=== PATIENT | female | born 1935 | race Caucasian/White ===

== ENCOUNTER 2019-01-18 13:08 | Emergency (ER) | payer OTHER ==
[~2019-01-18] VITALS: Ht 167.6 cm; Wt 40.8 kg
[2019-01-18 14:01] LABS: ANION GAP 10 mmol/L (7-16); BUN 33 mg/dL (7-18); CALCIUM 10.2 mg/dL (8.5-10.1); CHLORIDE 98 mmol/L (98-107); CO2 25 mmol/L (21-32); CREATININE 1.3 mg/dL (0.6-1.0); GLUCOSE 109 mg/dL (74-106); POTASSIUM 4.3 mmol/L (3.5-5.1); SODIUM 133 mmol/L (136-145)
[2019-01-18 14:11] LABS: ALBUMIN 3.4 g/dL (3.4-5.0); SGOT 27 U/L (15-37); SGPT 27 U/L (30-65); TOTAL PROTEIN 7.6 g/dL (6.4-8.2); TROPONIN-I <0.06 ng/mL (<0.06)
[2019-01-18 14:37] LABS: ABSOLUTE NEUTROPHILS 10.9 thou/uL (1.4-8.2); BASOPHILS 0.5 % (0.0-2.0); EOSINOPHILS 0.1 % (0.0-3.0); HEMATOCRIT 41.9 % (37.0-47.0); HEMOGLOBIN 14.3 gm/dL (12.0-15.0); LYMPHOCYTES 7.9 % (24.0-44.0); MCH 34.1 pg (26.0-34.0); MCHC 34.1 g/dL (28.0-37.0); PLATELET COUNT 231 thou/uL (150-400); POLYS 81.5 % (36.0-66.0); RBC 4.19 mil/uL (4.20-5.00); RDW 13.1 % (10.5-14.5); WBC 13.3 thou/uL (4.0-11.0)
[2019-01-18 16:04] LABS: URINE BILIRUBIN NEGATIVE (Negative); URINE BLOOD NEGATIVE (Negative); URINE CLARITY CLOUDY; URINE COLOR YELLOW; URINE GLUCOSE-RANDOM* NEGATIVE (Negative); URINE KETONES NEGATIVE (Negative); URINE LEUKOCYTES 1+ (Negative); URINE NITRITE NEGATIVE (Negative); URINE PROTEIN (DIPSTICK) TRACE (Negative); URINE SPECIFIC GRAVITY >= 1.030 (1.005-1.035); URINE UROBILINOGEN 0.2 E.U./dl (0.2-1.0)
[2019-01-18 16:11] LABS: CASTS None Seen /LPF (None Seen); SQUAMOUS >10 Many /LPF (0-3); URINE RBC None Seen /HPF (0-2); URINE WBC 6-15 Few /HPF (0-5)
[2019-01-18 16:12] LABS: BACTERIA >30 Many /HPF (None Seen); CRYSTALS None Seen /LPF (None Seen)
[2019-01-18] MEDS ORDERED: KEFLEX500 M1 PO (16:36)
[2019-01-18] MEDS ORDERED: ZOFRAN ODT4 MG PO (16:36)
[2019-01-18 17:00] VITALS: BP 122/77
== END 2019-01-18 17:00 | disposition home or self-care (01) ==
LOC: ER 13:08
PROVIDERS: Emergency Medicine
DX: N39.0 Urinary tract infection, site not specified (principal); J06.9 Acute upper respiratory infection, unspecified; R42 Dizziness and giddiness; M06.9 Rheumatoid arthritis, unspecified; Z88.5 Allergy status to narcotic agent; Z91.013 Allergy to seafood

== ENCOUNTER 2019-07-06 23:28 | Inpatient (IN) | payer OTHER ==
[~2019-07-06] VITALS: Ht 167.6 cm; Wt 40.1 kg
[~2019-07-06 23:28] MED LIST: KEFLEX500 M1 PO; ZOFRAN ODT4 MG PO
[2019-07-06 23:29] VITALS: BP 162/90
[2019-07-07] VITALS (10 sets, daily range): BP systolic 121–166; BP diastolic 54–94
[2019-07-07] MEDS ORDERED: LEFLUNOMIDE 1010 MG PO
[2019-07-07] MEDS ORDERED: COZAAR 25 MG TA25 M1 PO (00:01)
[2019-07-07] MEDS ORDERED: SERTRALINE HCL100 MG PO (00:01)
[2019-07-07] MEDS ORDERED: FAMOTIDINE 20 M20 MG PO (00:01)
[2019-07-07 00:20] LABS: BASOPHILS 0.8 % (0.0-2.0); EOSINOPHILS 1.4 % (0.0-3.0); HEMATOCRIT 32.3 % (37.0-47.0); HEMOGLOBIN 10.5 gm/dL (12.0-15.0); LYMPHOCYTES 11.6 % (24.0-44.0); MCH 32.4 pg (26.0-34.0); MCHC 32.7 g/dL (28.0-37.0); MCV 99.2 fL (80.0-100.0); MONOCYTES 9.6 % (1.0-8.0); PLATELET COUNT 321 thou/uL (150-400); POLYS 76.6 % (36.0-66.0); RBC 3.25 mil/uL (4.20-5.00); WBC 10.5 thou/uL (4.0-11.0)
[2019-07-07 00:22] LABS: ANION GAP 11 mmol/L (7-16); BUN 22 mg/dL (7-18); CALCIUM 7.8 mg/dL (8.5-10.1); CHLORIDE 105 mmol/L (98-107); CO2 20 mmol/L (21-32); CREATININE 0.8 mg/dL (0.6-1.0); GLUCOSE 109 mg/dL (74-106); POTASSIUM 3.3 mmol/L (3.5-5.1); SODIUM 136 mmol/L (136-145)
[2019-07-07 00:31] LABS: TROPONIN-I <0.06 ng/mL (<0.06)
--- NOTE | 2019-07-07 04:09 | NUR ---
PT WAS ADMITTED TO THE UNIT AT APPROX 0230 FROM THE ER IN A STABLE CONDITION.PT AXOX3.PT FROM [facility] WITH L HIP FX.ADMISSION HX,EDUCATION AND ASSESSMENT COMPLETED WITH THE HELP OF THE HOUSE SUP.PT HAS HER R GREAT TOE AMPUTATED June,SUTURES STILL IN PLACE.PT DENIED PAIN ON ADMISSION.PT NPO AT THIS TIME FOR POSSIBLE SURGERY TODAY.IVF INFUSING ORDERED .PT ABLE TO MAKE HER NEEDS KNOWN.FALL PRECAUTIIONS IN PLACE,CALL LIGHT WITHIN REACH.
--- NOTE | 2019-07-07 09:39 | NUR ---
WOUND CONSULT; INITIAL ASSESSMENT OF THE RIGHT GREAT TOE AMPUTATION SITE. THE INSCISION IS STABLE WITH NO S/S OF INFECTION.(SEE PICTURE) THE AMPUTATION WAS REPORTED 7 DAY AGO. THERE ALSO IN ERYTHEMA AND BRUISING CONSISTANT WITH A DTI. RECOMMENDATION; PAINT BOTH SITES WITH BETADINE DAILY. (NOTIFY WOUND CARE OF ANY CHANGES) RN PRESENT
[2019-07-07 11:21] LABS: TSH 7.986 uIU/mL (0.358-3.740)
--- NOTE | 2019-07-07 14:12 | NUR ---
PT ADMITTED RELATED TO LEFT HIP FRACTURE. CM REVIEWED CHART AND SPOKE WITH CARE TEAM. CM MET WITH PT AT BEDSIDE THIS DAY. PT IS A&O X4 BUT INDICATED SHE HAS DIFFICULTY WITH SHORT TERM MEMORY. PT STATED THAT SHE RESIDES AT [facility]. SHE STATED THAT SHE USED A FWW TO ASSIST [facility] MOBILITY EDUCATIONAL PROGRAM DIRECTOR. SHE STATED SHE HAD BEEN GETTING THERAPY EDUCATIONAL PROGRAM DIRECTOR AND THINKS IT WAS THROUGH [facility]. PT ASKED THAT CM SPEAK WITH HER DTR IN LAW JULIETTE. CM CALLED AND JULIETTE INDICATED THAT SHE OR HER HAD BEEN VISITING PT DAILY OR EVERY OTHER DAY EDUCATIONAL PROGRAM DIRECTOR. SHE STATED THAT THEY WERE CONTEMPLATING A MOVE TO AL LEVEL OF CARE. THEY INDICATED PT HAD PAID INTO [facility] BENEFIT AND WOULD LIKE TO PT TO GO TO [facility] IF POST ACUTE CARE STAY IS NEEDED. CM TO FAX REFERRAL. CM TO FOLLOW INDICATED WITH DC PLANNING.
--- NOTE | 2019-07-07 16:33 | NUR ---
VSS-AFEBRILE. C/O SIGNIFICANT LEFT HIP PAIN, PARTIAL RELIEF NOTED WITH IV PAIN MEDICATION. TO OR THIS AFTERNOON, SON NOTIFIED HE IS THE DPOA. REPORT GIVEN TO PREOP RN.
[2019-07-08] VITALS (7 sets, daily range): BP systolic 111–129; BP diastolic 55–83
[2019-07-08 05:31] LABS: MCH 33.7 pg (26.0-34.0); MCHC 33.6 g/dL (28.0-37.0); MCV 100.4 fL (80.0-100.0); RBC 2.39 mil/uL (4.20-5.00); RDW 13.2 % (10.5-14.5); WBC 9.6 thou/uL (4.0-11.0)
--- NOTE | 2019-07-08 05:37 | NUR ---
Assumed pt care @1915. pt alert and oriented but has short term memory which she is well aware off. pt had a restful night. pt denied pain last night but requesting some pain meds early this morning. pain controlled with pain med. vázquez inplaced and patent. produced 250ml overnight. bladderscan showed 0ml. pt stated that she does't feel any discomfort. . v/s have been stable all night. no s/s of distress. dressing to left hip c/d/i. right toe stitches inplaced. will cont to monitor
[2019-07-08 05:40] LABS: CALCIUM 8.7 mg/dL (8.5-10.1); CREATININE 0.8 mg/dL (0.6-1.0); POTASSIUM 4.6 mmol/L (3.5-5.1)
[2019-07-08 05:51] LABS: HEMOGLOBIN 8.1 gm/dL (12.0-15.0)
--- NOTE | 2019-07-08 06:24 | O ---
[facility] [place] [address] OPERATIVE REPORT Name: EKTA GREEN Room #: 435-P ADM IN M.R.#: [id number] Admission: 07/07/19 Attend Phys: Keny Norris Discharge: Date of : 35 Report #: [id number] THIS REPORT FOR: cc: Scott Thompson MD, Rene P. MD McCabe, Michael P. MD ~ CC: Keny Thompson PREOPERATIVE DIAGNOSIS: Comminuted intertrochanteric hip fracture, left hip. POSTOPERATIVE DIAGNOSIS: Comminuted intertrochanteric hip fracture, left hip. PROCEDURE: Intramedullary nail treatment of left intertrochanteric hip fracture. COMPLICATIONS: None. DRAINS: None. SPECIMENS: None. ANESTHESIA: General. ESTIMATED BLOOD LOSS: 75 mL. FINDINGS: [place] [employer] size 13 mm x 125 degree InterTan with 90 x 95 cephalomedullary screws and 30 mm distal interlock screw. HISTORY AND INDICATIONS: The patient is an elderly female who fell at her living facility last night and sustained an intertrochanteric hip fracture. She was indicated for surgical treatment. Risks, benefits, alternatives, and indication of surgery discussed with her and her son who gave full informed consent. They wished to move forward. Risks include, malunion, nonunion, need for further surgery, pain, bleeding, infection, complications related to anesthesia as well up to and including mortality. PROCEDURE IN DETAIL: After the left lower extremity was correctly identified as the operative extremity, the patient was taken to the operating room where general anesthesia was induced without complication. She was padded appropriately. Prophylactic antibiotics were administered at appropriate time. She was placed in traction boots and then time-out procedure was performed. The fracture alignment was evaluated under fluoroscopy and reduction maneuver was performed with abduction, external rotation, internal rotation and traction and then the traction was let down and good alignment was achieved. Left leg was prepped and draped in standard sterile fashion. [facility] [address] [place] [address] OPERATIVE REPORT Name: EKTA GREEN Room #: 435-P [facility] IN M.R.#: [id number] Admission: 07/07/19 Attend Phys: Keny Norris Discharge: Date of : 35 Report #: [id number] Under multiple planes of fluoroscopy, a guidepin was placed in the greater trochanter and access was obtained to the intramedullary space with the guide pin followed by the channel reamer. A ball tip guidewire was then advanced down the femur and we passed a 13 mm reamer indicating a size 13 nail would fit well and then placed this into the appropriate position and seated on x-ray. The cephalomedullary guide pin was then placed into the femoral head with care taken to ensure an appropriate tip apex distance on multiple planes. The fracture appeared well reduced. The InterTan interlocking screws were placed in the typical fashion with good compression achieved across the fracture and then assessed the reduction and was happy with the appearance and then placed the distal locking screw through the femoral nail outrigger and this obtained good purchase. Final x-rays were taken and confirming appropriate positioning and a satisfactory appearance of the fracture reduction and hardware. Wounds were copiously irrigated. The deep layer was closed with 0 Vicryl. The skin was closed with 2-0 Vicryl followed by skin bridgett. Sterile dressing was applied. The patient was awakened from anesthesia and taken to recovery room in stable condition. No complications. All counts were reported as correct. <ELECTRONICALLY SIGNED> By: Deep Ferguson MD 07/08/19 0624 [id number] Deep Ferguson MD /nt
[2019-07-08 06:37] LABS: MAGNESIUM 1.9 mg/dL (1.8-2.4)
--- NOTE | 2019-07-08 07:45 | EKG ---
[facility] [place] [address] ELECTROCARDIOGRAM REPORT Name: EKTA GREEN Room #: 435-P ADM IN M.R.#: [id number] Admission: 07/07/19 Attend Phys: Keny Norris Discharge: Date of : 35 Report #: [id number] THIS REPORT FOR: cc: Scott Thompson MD, Rene P. MD Lundgren,Jonathan Stewart MD [facility] ~ THIS REPORT FOR: //name// [facility] ED Test Date: 2019-07-07 Test Time: 01:10:18 Pat Name: EKTA GREEN Department: Room: [facility] Gender: F Pharmacy Benefits Coordinator: NO : 1935 Requested By: Duy Pierce Order Number: [id number] MD: Jonathan Baca Measurements Intervals [place] Rate: 79 P: 78 MT: 153 QRS: 64 QRSD: 90 T: 71 QT: 395 QTc: 453 Interpretive Statements Sinus rhythm Atrial premature complex Poor R wave progression No previous ECG available for comparison Electronically Signed On 07-08-2019 7:44:24 CDT by Jonathan Baca [email or web address] <ELECTRONICALLY SIGNED> By: Jonathan Baca MD, FAC 07/08/19 0744 0110 0110 Jonathan Baca MD, [facility] /EPI
--- NOTE | 2019-07-08 10:46 | NUR ---
FAXED TODAY'S PT/OT NOTES SPOKE WITH SHAHEED IN ADM SHE RECEIVED NOTES.
--- NOTE | 2019-07-08 11:52 | NUR ---
ASSUMED CARE OF THE PT AT 0700. PT IS VERY FORGET AND CONTINUES TO REPEAT THINGS SHE HAS ALREADY BEEN GIVEN OR BEEN TOLD. PT IS UP WITH ASSIST TO BSC WITH GAIT BELT AND WALKER. R UPPER ARM IV DRY AND INTACT. PT HAD SMALL BM WITH SMALL AMT OF MUCOUS. CATHETER TO COME OUT TODAY AFTER PT HAS MORE OUTPUT, GIVEN ORAL FLUIDS. WOUNDS CLEANED WITH NS AND BETADINE, AIR DRIED, R FOOT IN BOOT. FALL PRECAUTIONS IN PLACE. BED/ CHAIR ALARMS ON AND CALL LIGHT IS WITHIN REACH. WILL CONTINUE TO MONITOR THE PT.
--- NOTE | 2019-07-08 13:39 | NUR ---
[facility] INDICATED THAT THEY ARE ABLE TO ACCEPT PT FOR SHORT TERM POST ACUTE CARE STAY ONCE MEDICALLY STABLE. CM CALLED AND NOTIFIED PT'S FAMILY. THEY ARE AWARE AND AGREEABLE. CM TO FOLLOW INDICATED WITH DC PLANNING.
--- NOTE | 2019-07-08 19:25 | NUR ---
PT IN BED WAS ASSITTED XS 2 TO BSC. HAD SMALL BM. PT CUSSING AT STAFF AND WAVING ARMS AROUND STATES STAFF DOES NOT KNOW WHAT TO DO, PT HAS SHORT TERM MEMORY LOSS. PT STATES IS SORRY FOR WHAT SHE SAYS. IV FLUIDS INFUSING ORDERED. PRIMING MIXTURE CARRIER GOT PT UP TO BSC.
[2019-07-09 03:50] VITALS: BP 106/73
--- NOTE | 2019-07-09 05:48 | NUR ---
Pain partially relieved with current regimen. no other concerns overnight. vázquez in place and patent. dressing c/d/i. v/s stabl;e. no s/s of distress. will cont to monitor
[2019-07-09 05:54] LABS: HEMATOCRIT 20.2 % (37.0-47.0); HEMOGLOBIN 6.9 gm/dL (12.0-15.0); MCHC 34.1 g/dL (28.0-37.0); RDW 12.7 % (10.5-14.5); WBC 7.6 thou/uL (4.0-11.0)
[2019-07-09 05:57] LABS: MCV 99.5 fL (80.0-100.0); RBC 2.03 mil/uL (4.20-5.00)
[2019-07-09 07:10] VITALS: BP 136/74
--- NOTE | 2019-07-09 09:47 | NUR ---
WOUND CARE F/U; THE PATIENT OVERALL IS IMPROVING. THE RIGHT GREAT TOE AMPUTATION SITE IS HEALTHY AND NO S/S OF INFECTION OR DEHISCENCE AND IS WELL APPROXIMATED. THE SUTURES ARE DUE TO COME OUT ON THE WE WILL CONFIRM WITH THE PATIENTS DAUGHTER. THE RIGHT DORUSUM FOOT IS IMPROVING AND IS STABLE AND INTACT WITH LESS ERYTHEMA. CONTINUE POC DISCUSSED WITH MARY
--- NOTE | 2019-07-09 12:47 | NUR ---
IF PT SHOULD DISCHARGE OVER WEEKEND PLEASE FAX DC ORDERS/SUMMARY TO [phone] AND CALL [phone] TO SET UP TRANSPORTATION.
--- NOTE | 2019-07-09 12:58 | NUR ---
CARE TEAM INDICATED THAT PT WOULD LIKELY BE MEDICALLY STABLE TO DISCHARGE TO [facility] FOR SKILLED POST ACUTE CARE STAY THIS WEEKEND. CHART COPY ORDRED. WHEN PT IS MEDICALLY STABLE TO DISCHARGE CALL AND ASK FOR WEEKEND ADMISSIONS STAFF PERSON TO ARRANGE TRANSPORT. FAX ORDERS TO . CALL REPORT TO . NOTIFY FAMILY OF DISCHARGE DETAILS.
--- NOTE | 2019-07-09 14:44 | NUR ---
ASSUMED CARE OF THE PT AT 0700. PT IS A FALL RISK AND FALL PRECAUTIONS ARE IN PLACE. PTS R UPPER ARM INFILTRATED AND IV WAS REMOVED, NO SWEILLING. KAYE REMOVED. PTS HGB IS 6.9, DOCTOR NOTIFIED. WOUNDS CLEANED WITH NS AND BETADINE, AIR DRIED. PT IS ON 2.0L O2 NC. SCD'S AND ICE PACKS IN PLACE. PT IS TO RECIEVE A BLOOD TRANSFUSION PER DOCTOR, AWAITING ORDERS. BED IN LOWEST POSITION AND CALL LIGHT IS WITHIN REACH. WILL CONTINUE TO MONITOR THE PT.
[2019-07-09 17:06] VITALS: BP 146/67
[2019-07-09 18:39] VITALS: BP 127/77; BP 153/88
[2019-07-09 19:24] VITALS: BP 146/81
[2019-07-09 22:18] VITALS: BP 153/88
[2019-07-10 04:14] VITALS: BP 143/74
--- NOTE | 2019-07-10 04:24 | NUR ---
ASSESSMENT COMPLETED.ONE UNIT OF BLOOD TRANSFUSED /COMPLTED THIS SHIFT. PT IS ALERT AND ORIENTED. GETS ANXIOUS AT TIMES.LEFT HIP DRSG IS C/D/I. AFEBRILE. VOIDS PER BSC.SCDS IN PLACE. PAIN MANAGED BY HYDROCODONE THIS SHIFT. HAS 02/2L/NC, KEEPS TAKING IT OFF.SWALLOWING OKAY. DENIES COUGH. NO BM YET-AWAITING STOOL FOR OCCULT.FALL PREC IN PLACE.
[2019-07-10 05:56] LABS: HEMATOCRIT 25.4 % (37.0-47.0); HEMOGLOBIN 8.8 gm/dL (12.0-15.0); MCH 33.6 pg (26.0-34.0); MCHC 34.6 g/dL (28.0-37.0); MCV 97.3 fL (80.0-100.0); RBC 2.61 mil/uL (4.20-5.00); RDW 13.7 % (10.5-14.5)
[2019-07-10 07:36] VITALS: BP 150/81
[2019-07-10 15:20] VITALS: BP 134/102
--- NOTE | 2019-07-10 18:14 | NUR ---
ASSUMED PATIENT CARE AT 1000 WHEN PATIENT TRANSFERRED FROM , REPORT FROM [facility]. PATIENT HAS BEEN SLEEPING MOST OF THE DAY. WORKED WITH PT/OT. [place] WITH [place] [facility] [place] PATIENT HAS NOT BEEN EATING OR DRINKING MUCH OF ANYTHING. REFUSES TO EAT AND SLEEPS TRHOUGH THE MEAL. SCD'S IN PLACE. POSSIBLE D/C TOMORROW. PATIENT C/O SOME PAIN, PRN PAIN MEDS GIVEN. WOUND CARE COMPLETE, C/D/I FOR BOTH THE HIP INCISION AND THE TOE. PATIENT REFUSED TO SIT IN THE CHAIR BUT WAS OKAY WITH POSITION CHANGES. FALL PRECAUTIONS IN PLACE AND CALL LIGHT WITHIN REACH.
[2019-07-10 19:09] VITALS: BP 153/87
--- NOTE | 2019-07-10 19:16 | NUR ---
I AGREE WITH NURSING ASSESSMENT AND NURSING NOTE DONE BY GAMALIEL/JULIAN.
[2019-07-10 19:35] VITALS: BP 151/87
[2019-07-11 04:10] VITALS: BP 173/99
[2019-07-11 05:22] VITALS: BP 109/67
--- NOTE | 2019-07-11 07:18 | NUR ---
PATIENT ALERT AND ORIENTED X2-3. 2LNC DURING THE NIGHT. IV PATENT FOR FLUSH. BLOOD PRESSURE ELEVATED AND TREATED WITH PRN HYDRALAZINE 173/99 DOWN TO 109/67. PATIENT INCONTINENT OF URINE. NO BM DURING THE NIGHT. RESTING QUIETLY. PLEASANT AND COOPERATIVE.
[2019-07-11 09:26] VITALS: BP 128/78
--- NOTE | 2019-07-11 17:17 | NUR ---
ASSUMED CARE OF PATIENT AT 0715, PATIENT ALERT WITH CONFUSION. PATIENT C/O PAIN WITH LEFT HIP AREA, DR WU NOTIFIED OF PAIN LEVEL, NEW ORDER FOR HYDROCODONE 5/325MG SCHEDULED Q4HR WHILE AWAKE. PATIENT GIVEN SCHEDULED HYDROCODONE AT 1300, VERY LITTLE RELIEF, HYDROCODONE 2 TABS GIVEN, PATIENT WENT TO SLEEP. LEFT UPPER ARM IV IN PLACE. PATIENT C/O NAUSEA, ZOFRAN 4MG IV GIVEN. PATIENT UP TO THE CHAIR FOR LUNCH, C/O PAIN PUT BACK TO BED. LEFT HIP DRESSING C/D/I, CHANGED YESTERDAY. WILL CONTINUE TO MONITOR.
[2019-07-11 17:28] VITALS: BP 145/69
[2019-07-12 04:13] VITALS: BP 124/75
--- NOTE | 2019-07-12 05:27 | NUR ---
PATIENT ALERT AND ORIENTED X2. 02NC 2L WITH GOOD SATURATION. REQUIRES TWO ASSIST. PLEASANT AND COOPERATIVE WITH CARE. MANAGED PAIN WITH SCHEDULED PAIN MEDICATION. RESTING QUIETLY. INCONTINENT B/B.
[2019-07-12 05:45] LABS: CALCIUM 8.6 mg/dL (8.5-10.1); CREATININE 0.8 mg/dL (0.6-1.0); POTASSIUM 3.6 mmol/L (3.5-5.1)
[2019-07-12 05:50] LABS: HEMATOCRIT 27.3 % (37.0-47.0); HEMOGLOBIN 9.3 gm/dL (12.0-15.0); MCH 33.3 pg (26.0-34.0); MCHC 34.1 g/dL (28.0-37.0); MCV 97.7 fL (80.0-100.0); RBC 2.79 mil/uL (4.20-5.00); RDW 13.6 % (10.5-14.5); WBC 8.1 thou/uL (4.0-11.0)
[2019-07-12 09:30] VITALS: BP 101/60
[2019-07-12] MEDS ORDERED: XARELTO10 MG PO (12:23)
[2019-07-12] MEDS ORDERED: MIRALAX17 GM PO (12:23)
[2019-07-12] MEDS ORDERED: COLACE100 MG PO (12:23)
[2019-07-12] MEDS ORDERED: NORCO 5-325 TA1 EAC1 PO (12:24)
[2019-07-12] MEDS ORDERED: TYLENOL 8 HOUR650 MG PO (12:25)
--- NOTE | 2019-07-12 13:19 | NUR ---
PT DISCHARGING TODAY TO [facility] FAXED DC ORDERS/SUMMARY TO FACILITY SPOKE WITH SHAHEED IN ADM SHE RECEIVED ORDERS AND ARRANGED TRANSPORT BY [facility] FOR 1600 TODAY. NOTIFIED PT'S DTR IN LAW (JULIETTE) OF DC AND TIME OF TRANSPORT. UNIT NOTIFIED AND CHART COPY PER US. RN TO CALL REPORT TO [phone].
--- NOTE | 2019-07-12 15:10 | NUR ---
CARE TEAM INDICATED THAT PT IS MEDCIALLY STABLE TO DISCHARGE TO [facility] THIS DAY. CHART COPY ORDERED. ORDERS FAXED. [facility]SP[facility] ARRANGED FOR 1600. PT'S DTR IN LAW AND SON ARE AWARE AND AGREEABLE. REPORT TO BE CALLED TO . NO OTHER CM INTERVENTION INDICATED CASE CLOSED.
--- NOTE | 2019-07-12 15:23 | NUR ---
WOUND CARE F/U; THIS PATIENT WAS SEEN PREVIOUSLY RE; A LEFT HIP FRACTURE. THE RIGHT DORSUM WAS SUGGESTIVE OF A DTI BUT TODAY IT IS MUCH IMPROVED AND LIKELY JUST A BRUISE. THE RN IS LOOKING INTO SUTURE REMOVAL IN THE VIA INFO FROM THE PATIENTS DPOA. RECOMMENDATIONS; NO CHANGES WOUND CARE WILL SIGN OFF AT THIS TIME. DISCUSSED WITH RN
--- NOTE | 2019-07-12 17:14 | NUR ---
ASSUMED PATIENT CARE AT 0700. PATIENT IS AOX4 TODAY AND VERY PLEASANT. C/O PAIN AND SCHEDULED PAIN MEDS GIVEN AND HELPING. PATIENT ABLE TO EAT BETTER AND DRINK HER SUPPLEMENT. PATIENT ALLOWED OT/PT TO WORK WITH HER A LITTLE BUT DIDN'T WANT TO SIT IN THE CHAIR. PATIENT D/C AT 1600 TO [facility], REPORT CALLED TO DAKOTAH.
== END 2019-07-12 17:30 | DRG 480 ==
LOC: ER 23:28 → EROBS 07-07 01:13 → 4S 07-07 01:13 → 4N 07-10 10:12
PROVIDERS: Emergency Medicine; Internal Medicine; Orthopaedic Surgery Sports Medicine; ADMIT Hospitalist
PROC: 0QS706Z Reposition Left Upper Femur with Intramedullary Internal Fixation Device, Open Approach (ICD-10-PCS; principal; 2019-07-07)
PROC: 30233N1 Transfusion of Nonautologous Red Blood Cells into Peripheral Vein, Percutaneous Approach (ICD-10-PCS; 2019-07-09)
DX: S72.142A Displaced intertrochanteric fracture of left femur, initial encounter for closed fracture (principal); E43 Unspecified severe protein-calorie malnutrition; D62 Acute posthemorrhagic anemia; Z68.1 Body mass index [BMI] 19.9 or less, adult; W18.12XA Fall from or off toilet with subsequent striking against object, initial encounter; F32.9 Major depressive disorder, single episode, unspecified; K59.00 Constipation, unspecified; I10 Essential (primary) hypertension; K21.9 Gastro-esophageal reflux disease without esophagitis; E87.6 Hypokalemia; M13.0 Polyarthritis, unspecified; Z47.89 Encounter for other orthopedic aftercare; Y93.89 Activity, other specified; Z91.81 History of falling; Z89.411 Acquired absence of right great toe; Z90.710 Acquired absence of both cervix and uterus; Z98.41 Cataract extraction status, right eye; Z88.6 Allergy status to analgesic agent; Z91.013 Allergy to seafood; Y92.89 Other specified places as the place of occurrence of the external cause; Y99.8 Other external cause status
CPT/HCPCS: 10195; 10790; 50010; 50101; 50386; 50455; 51412; 51538; 52304; 56525; 57092; 5717; 5718; 57501; 57506; 57507; 62110; 62900; 70005

== ENCOUNTER 2019-07-20 10:52 | Inpatient (IN) | payer OTHER ==
[~2019-07-20] VITALS: Ht 167.6 cm; Wt 40.8 kg
[2019-07-20] VITALS (10 sets, daily range): BP systolic 111–137; BP diastolic 62–97
--- NOTE | ~2019-07-20 | EMS ---
[address] [address] EMS Patient Care Report Name: EKTA GREEN Room #: PRE M.R.#: [id number] Admission: Attend Phys: Discharge: Date of : 35 Report #: [id number] THIS REPORT FOR: //name// Report Transmitted: 07/20/2019 10:26 EMS Care Summary [facility] Incident [id number] @ 07/20/2019 10:05 Incident Location [address] [place] [address] Patient EKTA GREEN Female, 84 Years 1935 Patient Address [address] [place] [address] Patient History Hypertension (HTN),Arthritis,Depression,Osteoarthritis,Anemia, Patient Allergies Codeine,Shellfish allergy, Patient Medications Hydrocodone, Losartan, Famotidine, Tramadol, Chief Complaint leg pain Disposition Transported No Lights/[place] Dispatch Reason [place] Transported To [facility] Narrative Arrive to find pt laying on the carpeted floor near her bed with a pillow under her head and staff in the room. Pt reports that she was getting out of bed and [address] [address] EMS Patient Care Report Name: EKTA GREEN Room #: PRE ER M.R.#: [id number] Admission: Attend Phys: Discharge: Date of : 35 Report #: [id number] trying to transfer to the wheel chair when she fell. Pt says she fell because she broke her left leg about three weeks ago and is still having some problems getting around. Pt says she has right leg pain from the anterior hip flexor area to the mid thigh. Pt says when she is laying still it is just sore but when she moves it is 10/10 pain. Pt denies any loss of consc., CP, SOB or any other problems. IV started and pain medication given. Pt says this has helped. Pt is rolled and a blanket placed under her. Pt is lifted to the cot and secured in a position of comfort. Pt taken to ambulance. VS and ECG monitored, biocom to [place] with no orders and tx without incident. Pt taken to ER room and report to RN at bedside and care transferred. Initial Vitals @10:36P: 83,BP: 114/63,SpO2: 92, @10:21P: 76,SpO2: 93,IL Suspected: false @10:45P: 75,R: 18,BP: 124/71,Pain: 2/10,GCS: 15,SpO2: 98,Revised Trauma: 12,IL Suspected: false @10:16P: 85,R: 18,BP: 141/90,Pain: 6/10,GCS: 15,SpO2: 91,Revised Trauma: 12, Assessments @10:15MENTAL:Person Oriented,Time Oriented,Event Oriented,Place Oriented,SKIN:HEENT:Head/Face: No Abnormalities,LUNG SOUNDS:ABDOMEN:PELVIS//GI:EXTREMITIES:Right Leg: Other,Left Arm: No Abnormalities,Right Arm: No Abnormalities,Left Leg: No Abnormalities,PULSE:NEURO:No Abnormalities, Impression Injury Procedures @10:20Saline Lock 10cc (20 ga) Site: Antecubital-LeftResponse: UnchangedSucceeded@10:21Fentanyl - 50 Micrograms (mcg) - Intravenous (IV)Response: Improved Timeline 10:05,Call Received 10:05,Psap Call 10:05,Dispatched 10:06,En Route 10:09,On Scene 10:13,At Patient 10:16,BP: 141/90 M,PULSE: 85,RR: 18 R,SPO2: 91 Ox,ETCO2: ,BG: ,PAIN: 6,GCS: 15, 10:20,Saline Lock 10cc 20 ga Site: Antecubital-Left,Response: UnchangedSucceeded, [address] [address] EMS Patient Care Report Name: NORMAEKTA Room #: PRE Laila#: [id number] Admission: Attend Phys: Discharge: Date of : 35 Report #: [id number] 10:21,Fentanyl - 50 Micrograms (mcg) - Intravenous (IV),Response: Improved 10:21,BP: / M,PULSE: 76,RR: R,SPO2: 93 Ox,ETCO2: ,BG: ,PAIN: ,GCS: , 10:34,Depart Scene 10:36,BP: 114/63 M,PULSE: 83,RR: R,SPO2: 92 Ox,ETCO2: ,BG: ,PAIN: ,GCS: , 10:45,BP: 124/71 M,PULSE: 75,RR: 18 R,SPO2: 98 Ox,ETCO2: ,BG: ,PAIN: 2,GCS: 15, 10:49,At Destination 11:17,Call Closed Disclaimer v1.1 Copyright 2020 [employer] This EMS Care Summary contains data elements from the applicable legal record (which may be displayed differently). It is designed to provide pertinent information for the following purposes: continuity of care, clinical quality, and state data reporting. The complete legal record is available to ED staff and administrators of the receiving hospital in [employer] Patient Tracker. All data is provided "as is."
[~2019-07-20 10:52] MED LIST changes: +COLACE100 MG PO; +COZAAR 25 MG TA25 M1 PO; +FAMOTIDINE 20 M20 MG PO; +LEFLUNOMIDE 1010 MG PO; +MIRALAX17 GM PO; +NORCO 5-325 TA1 EAC1 PO; +SERTRALINE HCL100 MG PO; +TYLENOL 8 HOUR650 MG PO; +XARELTO10 MG PO
[2019-07-20 11:25] LABS: ABSOLUTE NEUTROPHILS 7.1 thou/uL (1.4-8.2); EOSINOPHILS 1.7 % (0.0-3.0); HEMATOCRIT 31.2 % (37.0-47.0); HEMOGLOBIN 10.6 gm/dL (12.0-15.0); LYMPHOCYTES 11.4 % (24.0-44.0); MCH 34.2 pg (26.0-34.0); MCV 100.4 fL (80.0-100.0); MONOCYTES 9.7 % (1.0-8.0); PLATELET COUNT 497 thou/uL (150-400); POLYS 76.2 % (36.0-66.0); RBC 3.11 mil/uL (4.20-5.00); RDW 15.6 % (10.5-14.5); WBC 9.3 thou/uL (4.0-11.0)
[2019-07-20 11:33] LABS: CALCIUM 9.7 mg/dL (8.5-10.1); CREATININE 0.9 mg/dL (0.6-1.0)
[2019-07-20 11:35] LABS: INR 1.3; PROTIME 13.6 Seconds (9.3-11.4)
[2019-07-20 11:39] LABS: TOTAL BILIRUBIN 1.2 mg/dL (<0.1-1.0); TOTAL PROTEIN 6.4 g/dL (6.4-8.2)
--- NOTE | 2019-07-20 14:07 | EKG ---
[facility] [place] [place] [address] ELECTROCARDIOGRAM REPORT Name: EKTA GREEN Room #: 437-P ADM IN M.R.#: [id number] Admission: 07/20/19 Attend Phys: Job Zepeda MD Discharge: Date of : 35 Report #: [id number] THIS REPORT FOR: cc: Scott Thompson MD, Rene P. MD Couchonnal, Luis F. MD ~ THIS REPORT FOR: //name// [facility] ED Test Date: 2019-07-20 Test Time: 12:17:16 Pat Name: EKTA GREEN Department: Room: 437 Gender: F Transportation Consultant: sylvia : 1935 Requested By: Nilsa Trejo Order Number: [id number] MD: Florian Mustafa Measurements Intervals [place] Rate: 67 P: 101 [place]: 150 QRS: 118 QRSD: 216 T: 86 QT: 406 QTc: 429 Interpretive Statements Right and left arm electrode reversal, interpretation assumes no reversal Sinus rhythm Atrial premature complex Anterior infarct, acute (LAD) Compared to ECG 07/07/2019 01:10:18 Myocardial infarct finding now present Poor R-wave progression no longer present Electronically Signed On 07-20-2019 14:05:47 CDT by Florian Mustafa [email or web address] <ELECTRONICALLY SIGNED> By: Florian Mustafa MD 07/20/19 1405 16 1217 Florian Mustafa MD /EPI
--- NOTE | 2019-07-20 19:20 | NUR ---
Pt came from PACU post-op. C/o pain in right hip. Dressing c/d/i. 2L O2. Vital signs stable. Pt came from [facility]. Call light within reach. Report given to nelly HERNANDEZ.
--- NOTE | 2019-07-21 00:45 | NUR ---
ASSUMED PT CARE AT 1900. PT STILL GROGGY AT START OF SHIFT. REPORTS PAIN 7/10, PAIN MEDS GIVEN - PT WENT BACK TO SLEEP. RIGHT HIP DRESSING DRY AND INTACT. HAS A KAYE PLACED IN SURGERY. DTR CALLED THIS EVENING FOR UPDATE - SAYS PT IS USUALLY PRETTY WITH IT BUT HAS HAD SOME SEVERE CONFUSION LATELY, THINKS IT IS DUE TO THE PAIN MEDS. AROUND 2129, PT WOKE UP AND WAS MUCH MORE ORIENTED. O2 STILL NEEDED TO MAINTAIN O2 SAT WNL. PT DID NOT WANT TO BE MOVED TONIGHT, SAYS SHE WILL BE WILLING TO GET UP TOMORROW.
[2019-07-21 01:52] VITALS: BP 123/64
[2019-07-21 04:07] VITALS: BP 120/72
[2019-07-21 05:49] LABS: ABSOLUTE NEUTROPHILS 8.6 thou/uL (1.4-8.2); BASOPHILS 0.8 % (0.0-2.0); EOSINOPHILS 0.2 % (0.0-3.0); LYMPHOCYTES 9.2 % (24.0-44.0); MCH 34.1 pg (26.0-34.0); MCHC 33.7 g/dL (28.0-37.0); MCV 101.3 fL (80.0-100.0); MONOCYTES 9.2 % (1.0-8.0); POLYS 80.6 % (36.0-66.0); RBC 2.27 mil/uL (4.20-5.00); RDW 16.2 % (10.5-14.5); WBC 10.6 thou/uL (4.0-11.0)
[2019-07-21 05:56] LABS: CALCIUM 8.5 mg/dL (8.5-10.1); CREATININE 0.9 mg/dL (0.6-1.0); MAGNESIUM 1.8 mg/dL (1.8-2.4); POTASSIUM 4.3 mmol/L (3.5-5.1)
[2019-07-21 06:11] LABS: HEMOGLOBIN 7.7 gm/dL (12.0-15.0); PLATELET COUNT 368 thou/uL (150-400)
[2019-07-21 07:48] VITALS: BP 91/50
[2019-07-21 10:00] VITALS: BP 110/62
--- NOTE | 2019-07-21 10:18 | NUR ---
PT ADMITTED RELATED TO RIGHT HIP FX S/P IM NAILING. CM REVIEWED CHART AND SPOKE WITH CARE TEAM. PT HAD DISCHARGED TO [facility] SKILLED 07/11 FOR LEFT HIP FX S/P IM NAILING. CM SPOKE WITH PT'S SON AND DTR IN LAW. THEY INDICATED THAT THEY WERE AGREEABLE WITH CONTINUED POST ACUTE CARE STAY WHETHER THAT BE AT [facility] AT ACUTE REHAB HERE AT [facility]. THEY ARE AGREEABLE TO HAVE 5N EVALUATE FOR POSSIBLE ADMISSION. DTR IN LAW INDICATED THAT SHE WAS IN COMMUNICATION WITH MIRIAN AT [facility] WHERE PT HAD BEEN LIVING IN [place] AND HAVING PT MOVE TO [place]. CM TO FOLLOW INDICATED WITH DC PLANNING.
--- NOTE | 2019-07-21 12:30 | NUR ---
Assumed care of pt at 0700. Pt alert but with periods of confusion. C/o in right hip. PRN pain meds administered. Paredes catheter in place. Pt refuses bisacodyl suppository. 5N rehab will evaluate patient. Dressing c/d/i. Call light within reach. Fall precautions in place. Will continue to monitor.
--- NOTE | 2019-07-21 15:51 | NUR ---
FAXED CLINICAL UPDATE TO [facility] OF OP RECEIVED CONFIRMATION AND LEFT MSG WITH SHAHEED IN ADM. DP TO FOLLOW.
[2019-07-21 17:04] VITALS: BP 94/46
[2019-07-21 19:20] VITALS: BP 108/59
[2019-07-22 04:00] VITALS: BP 109/43
[2019-07-22 05:42] LABS: HEMOGLOBIN 7.2 gm/dL (12.0-15.0); MCH 34.6 pg (26.0-34.0); MCHC 34.2 g/dL (28.0-37.0); RBC 2.08 mil/uL (4.20-5.00); RDW 16.7 % (10.5-14.5); WBC 9.6 thou/uL (4.0-11.0)
--- NOTE | 2019-07-22 06:00 | NUR ---
pt alert to self. confused and forgetful. Requires q2hr turns-does not tolerate well due to both hips fractured. R hip with drsg c/d/i. SCDS in place. Getting po hydrocodone with fair relief of pain. Continues on as well as RT treatments. Paredes catheter dc/d this AM. Good U/O.Encouraging oral intake. Afebrile. Uses call light. Fall prec in place.
[2019-07-22 07:34] VITALS: BP 113/62
[2019-07-22 07:38] LABS: URINE BILIRUBIN NEGATIVE (Negative); URINE BLOOD 2+ (Negative); URINE CLARITY CLEAR; URINE COLOR YELLOW; URINE GLUCOSE-RANDOM* NEGATIVE (Negative); URINE KETONES NEGATIVE (Negative); URINE LEUKOCYTES-REFLEX NEGATIVE (Negative); URINE NITRITE-REFLEX NEGATIVE (Negative); URINE PROTEIN (DIPSTICK) NEGATIVE (Negative); URINE UROBILINOGEN 0.2 E.U./dl (0.2-1.0)
[2019-07-22 08:06] LABS: CASTS None Seen /LPF (None Seen); SQUAMOUS 0-3 Few /LPF (0-3)
[2019-07-22 08:07] LABS: BACTERIA-REFLEX 1-9 Few /HPF (None Seen); CALCIUM OXALATE 4-10 Moderate /LPF (None Seen); URINE WBC-REFLEX 0-5 Rare /HPF (0-5)
--- NOTE | 2019-07-22 10:00 | O ---
[address] [address] OPERATIVE REPORT Name: EKTA GREEN Room #: 437-P ADM IN M.R.#: [id number] Admission: 07/20/19 Attend Phys: Job Zepeda MD Discharge: Date of : 35 Report #: [id number] THIS REPORT FOR: cc: Scott Thompson MD, Rene P. MD McCabe,Deep Peguero MD ~ CC: Job Thompson DATE OF SERVICE: 07/20/2019 SERVICE: Orthopedics. FACILITY: [facility]. SURGEON: Deep Ferguson MD BOTTLE WASHER: Shanel Madden NP. INDICATION FOR BOTTLE WASHER: Reduction assistance, assistance with the internal fixation and closure. PREOPERATIVE DIAGNOSES: 1. Right intertrochanteric hip fracture. 2. Status post multiple falls. 3. Status post left intertrochanteric hip fracture IM nail fixation on 07/07/2019. 4. Sarcopenia. 5. Dementia. POSTOPERATIVE DIAGNOSES: 1. Right intertrochanteric hip fracture. 2. Status post multiple falls. 3. Status post left intertrochanteric hip fracture IM nail fixation on 07/07/2019. 4. Sarcopenia. 5. Dementia. PROCEDURE: Intramedullary nail fixation, right intertrochanteric hip fracture. COMPLICATIONS: None. DRAINS: None. SPECIMENS: None. [address] [address] OPERATIVE REPORT Name: EKTA GREEN Room #: 437-P [facility] IN [facility]#: [id number] Admission: 07/20/19 Attend Phys: Job Zepeda MD Discharge: Date of : 35 Report #: [id number] ANESTHESIA: General. ESTIMATED BLOOD LOSS: 75 mL. FINDINGS: [place] and Nephshree 13 x 125 degree InterTan nail with 90 x 95 cephalomedullary screws and 35 mm distal locking screw. HISTORY: The patient is an 84-year-old female who unfortunately has had 2 falls and 2 broken hips this month. She fell and sustained a left hip fracture and was admitted to the hospital and underwent IM nail fixation and she was discharged to rehabilitation. She attempted to get up on her own without assistance today and fell, and she was brought to the Emergency Room with hip pain. Diagnosis of intertrochanteric hip fracture was confirmed. She was indicated for surgical fixation. We made a determination of prompt surgical treatment was most appropriate to avoid unnecessary delay. The risks, benefits, alternatives, and indication of surgery were discussed with her and her family preoperatively. We had a amara discussion about the high mortality risk and severe morbidity risk with her situation with 2 hip fractures within 2 weeks and they expressed understanding and wished to move forward with surgical plan. Risks, benefits, alternatives, and indication of surgery were otherwise reviewed in detail. Risks otherwise include pain, bleeding, infection, need for transfusion, malunion, nonunion, need for further surgery as well as complications related to anesthesia such as stroke, heart attack, pulmonary complications, thromboembolic disease and . Despite the risks, they did wish to move forward. PROCEDURE IN DETAIL: After right lower extremity was correctly identified in preoperative holding as operative extremity, the patient was taken to the operating room where general anesthesia was induced without complication. She was padded appropriately. Prophylactic antibiotics were administered at appropriate time. Time-out procedure was performed. Under C-arm fluoroscopy, a reduction maneuver was performed with abduction, external rotation followed by traction, adduction and internal rotation until adequate alignment was achieved. Right hip was then prepped and draped in standard sterile fashion. One-inch incision was made proximal to the greater trochanter. Dissection was taken down to the tip of the trochanter and then a guidepin was placed in the appropriate position and then the entry reamer was used to obtain access to the femoral canal. The nail was then placed into the femur and then the outrigger was used to place a guide pin into the femoral head with x-rays taken on the AP and lateral to ensure appropriate tip apex distance. We placed the screws in the lower half of the femoral neck as this is where the majority of the displacement was and fractures and slight valgus at the time of the reduction, so this would improve the alignment when the compression was applied. Two InterTan proximal screws were then placed in a standard fashion and approximately 7 mm of compression was obtained and the traction was gently lessened as the compression was being placed to allow a good reduction, which was viewed on the AP and the [facility] [address] [place] [address] OPERATIVE REPORT Name: EKTA GREEN Room #: 437-P [facility] IN M.R.#: [id number] Admission: 07/20/19 Attend Phys: Job Zepeda MD Discharge: Date of : 35 Report #: [id number] lateral x-rays. Care was taken to ensure that no hardware penetrated the femoral head. The distal locking screw was then placed through the outrigger using x-ray assistance as well. A 35 mm distal locking screw was placed. AP and lateral x-rays were then taken of this screw and then the outrigger was removed. Final x-rays were taken showing adequate alignment and hardware position. The wounds were copiously irrigated. The fascial layer was closed with 0 Vicryl and skin was closed with 2-0 Vicryl, followed by skin bridgett. A sterile dressing was applied. The patient was awakened from anesthesia and taken to recovery room in stable condition. No complications. All counts were correct. <ELECTRONICALLY SIGNED> By: Deep Ferguson MD 07/22/19 1000 [id number] Deep Ferguson MD /nt
--- NOTE | 2019-07-22 12:56 | NUR ---
[facility] ASSESSED AND INDICATED THAT THEY ARE ABLE TO ACCEPT PT FOR ADMISSION ONCE MEDICALLY STABLE. PHYSICIAN INDICATED THAT PT IS MEDICALLY STABLE TO DC TO [facility] THIS DAY. CM SPOKE WITH PT'S DTR IN LAW AND SHE INDICATED THAT SHE IS AWARE AND AGREEABLE WITH DC TO [facility] THIS DAY. PLAN IS FOR PT TO REHAB AND DISCHARGE TO [facility]. CM TO FOLLOW INDICATED WITH DC PLANNING. REPORT TO BE CALLED TO . NO OTHER CM INTERVENTION INDICATED. CASE CLOSED.
== END 2019-07-22 14:58 | DRG 480 ==
LOC: ER 10:52 → 4S 12:03 → EROBS 12:03 → 4S 13:28
PROVIDERS: Nurse Practitioner; Orthopaedic Surgery Sports Medicine; Physician Assistant; ADMIT Hospitalist
PROC: 0QH606Z Insertion of Intramedullary Internal Fixation Device into Right Upper Femur, Open Approach (ICD-10-PCS; principal; 2019-07-20)
DX: S72.141A Displaced intertrochanteric fracture of right femur, initial encounter for closed fracture (principal); E43 Unspecified severe protein-calorie malnutrition; Z68.1 Body mass index [BMI] 19.9 or less, adult; D62 Acute posthemorrhagic anemia; M13.0 Polyarthritis, unspecified; W18.39XA Other fall on same level, initial encounter; M06.9 Rheumatoid arthritis, unspecified; I10 Essential (primary) hypertension; K21.9 Gastro-esophageal reflux disease without esophagitis; M62.84 Sarcopenia; F03.90 Unspecified dementia, unspecified severity, without behavioral disturbance, psychotic disturbance, mood disturbance, and anxiety; F32.9 Major depressive disorder, single episode, unspecified; R11.0 Nausea; H26.8 Other specified cataract; J44.9 Chronic obstructive pulmonary disease, unspecified; K59.09 Other constipation; M81.0 Age-related osteoporosis without current pathological fracture; I95.9 Hypotension, unspecified; D53.9 Nutritional anemia, unspecified; Z89.421 Acquired absence of other right toe(s); Y93.89 Activity, other specified; Y92.89 Other specified places as the place of occurrence of the external cause; Y99.8 Other external cause status; Z90.710 Acquired absence of both cervix and uterus; Z79.891 Long term (current) use of opiate analgesic; Z87.891 Personal history of nicotine dependence; Z79.899 Other long term (current) drug therapy; Z88.5 Allergy status to narcotic agent; Z91.013 Allergy to seafood; Z91.81 History of falling
CPT/HCPCS: 10195; 50010; 50101; 50386; 50455; 51412; 51538; 52304; 56525; 57092; 62110; 62900; 70005

== ENCOUNTER 2019-07-22 12:47 | Inpatient (IN) | payer OTHER ==
[~2019-07-22] VITALS: Ht 172.7 cm; Wt 40.8 kg
--- NOTE | 2019-07-22 15:16 | NUR ---
ASSUMED CARE OF PT AT 1430. RECEIVED REPORT FROM MARICEL HERNANDEZ PRIOR TO BRINGING PT TO UNIT. ADMISSION EDUCATION, ADMISSION HX AND ASSESSMENT COMPLETED, MEDICATIONS FAXED TO PHARMACY. FAMILY NOTIFIED OF TRANSFER. ADMISSION VITAL SIGNS COMPLETED, CALLED CONSULTS. PT IS A&OX4 AND FORGETFUL, IMPULSIVE. HR REGULAR, LUNG SOUNDS DIMINISHED, BOWEL SOUNDS ACTIVE, LOOSE INCONTINENT STOOL, REPORTS PAIN, MANAGED WITH PO MEDICAITONS. FALL PRECAUTIONS IN PLACE AND NURSING WILL CONTINUE TO MONITOR.
[2019-07-22 15:32] VITALS: BP 149/80
--- NOTE | 2019-07-22 16:44 | NUR ---
Assumed pt care at 7am.Pt in bed resting without c/o. Assisted with tray setup at all meals.Fair appetite due to denture absence.Pt transfered to chair by therapist.Later this afternoon at 1430,dc order to inpt rehab received and pt left in wc with all her personal belongings.
--- NOTE | 2019-07-22 18:43 | NUR ---
RECEIVED REPORT AT 1600, PT ON A BEDPAN IN BED. HAD A XLG SOFT/UNFORMED BM. FELL ASLEEP AFTER, WOKEUP BRIEFLY TO EAT HER DINNER. ATE *3 BITES OF FOOD AND DRANK ALL HER ENSURE. ASLEEP AFTER DINNER. FREQ. VISUAL CHECKS. CALL LIGHT WITHIN REACH. FALL PRECAUTIONS IN PLACE
[2019-07-22 20:04] VITALS: BP 134/64
--- NOTE | 2019-07-23 02:36 | NUR ---
TOOK OVER PT CARE AT 1900. PT ASLEEP ALL EVENING. FALL PRECAUTIONS IN PLACE. HOURLY ROUNDING DONE. CALL LIGHT IN REACH. WILL CONTINUE TO MONITOR.
[2019-07-23 04:42] LABS: HEMATOCRIT 20.3 % (37.0-47.0); HEMOGLOBIN 7.2 gm/dL (12.0-15.0); MCHC 35.6 g/dL (28.0-37.0); RBC 2.01 mil/uL (4.20-5.00); RDW 16.6 % (10.5-14.5); WBC 8.5 thou/uL (4.0-11.0)
[2019-07-23 04:47] LABS: CALCIUM 8.4 mg/dL (8.5-10.1); CREATININE 0.7 mg/dL (0.6-1.0); POTASSIUM 3.8 mmol/L (3.5-5.1)
[2019-07-23 09:30] VITALS: BP 94/55
--- NOTE | 2019-07-23 14:43 | NUR ---
REHAB INITIAL ASSESSMENT: MADELYN reviewed chart and spoke with nursing. Pt was admitted to in acute rehab yesterday. Pt lives at [facility]. Pt was admitted from [facility] following recent hip fx. MADELYN spoke with pt's dtr-in-law, Kiesha, via phone. Introduced role of MADELYN. Pt's family is in the process of moving pt in the [place] apts at [facility]. MADELYN explained that rehab team meetings are held on Friday afternoons. Follow up with pt and family will be made after the team meeting to discuss discharge. MADELYN spoke with Adrienne, Director of Resident Services, at [facility], to discuss pt's move to [place]. Requested paperwork to be faxed to MADELYN to start working on with physician/ASH HANDLER. MADELYN is following to assist as needed with discharge planning.
[2019-07-23 20:00] VITALS: BP 118/63
--- NOTE | 2019-07-23 20:10 | NUR ---
ASSUMED CARE OF PT AT 0700. PT IS A&OX2-3, IRRITABLE, AND FORGETFUL. B/P DECREASED IN AM, RECHECKED AFTER PT UP FOR BREAKFAST AND WAS WNL. DUE TO LOOSE BOWEL MOVEMENTS BOWEL MEDICATIONS HELD IN AM. DURING OT PT OBSERVED STANDING UP TO HAVE APPARENT RECTAL PROLAPSE. ORDERS FOR KUB AND CONSULT DR OLIVARES. DR OLIVARES ASSESSED PT AND ORDERS IN PLACE AND COMMUNICATED ORDERS WITH ONCOMING SHIFT. MONITORING H&H AND S/S OF ANEMIA. FALL PRECAUTIONS IN PLACE AND NURSING WILL CONTINUE TO MONITOR.
--- NOTE | 2019-07-24 02:20 | NUR ---
HYDROCODONE PER REQUEST AT 2100 PRIOR TO MOVING SIDE TO SIDE FOR TAP WATER ENEMAS AN HOUR APART. PATIENT ABLE TO HOLD AT LEAST 1000 CC OF WATER EACH ENEMA WITH BROWN WATER RESULT EACH TIME. REPOSITION TURNS WITH ABDUCTOR PILLOW IN PLACE, APPRECIATES MOISTURE BARRIER TO REDDENED SACRUM.
[2019-07-24 05:36] LABS: HEMOGLOBIN 7.3 gm/dL (12.0-15.0)
[2019-07-24 05:57] LABS: FOLIC ACID 18.8 ng/mL (8.6-58.9)
[2019-07-24 08:45] VITALS: BP 137/73
[2019-07-24 11:00] VITALS: BP 131/73
[2019-07-24 11:17] VITALS: BP 131/73
--- NOTE | 2019-07-24 18:25 | NUR ---
ASSUMED CARE OF PT AT 0700. PT IS A&OX2-3, FORGETFUL AND IMPULSIVE AT TIMES. REVIEWED LABS IN AM WITH PROVIDER. NURSING TO CONTINUE TO MONITOR H&H AND ANEMIA. DURING AM THERAPIES PT WAS IN BATHROOM WITH PT WHEN SHE BEGAN TO BECOME WEAK TO THE POINT THAT SHE STRUGGLED TO LIFT HER HEAD. PT STATED THAT SHE WAS NOT FEELING WELL, MUCOUS MEMBRANES BEGAN TO TURN BLUE, PT WAS INCREASINGLY PALE AND BEGAN TO DROOL FROM MOUTH. STAFF IMMEDIATELY ASSISTED PT TO BED AND OBTAINED VITAL SIGNS, INCREASED OXYGEN, RT NOTIFIED, PROVIDER NOTIFIED. PT WAS TACHYCARDIC, SPO2 WAS INITIALLY IN THE 70'S BUT FOLLOWING BREATHING TX AND REST DID RETURN TO 90'S. EKG DUE TO NOTED IRREGULAR HR, PROVIDER AWARE OF RESULTS. 18G IV STARTED. ORDERS FOR BLOOD TRANSFUSION RECEIVED, CONSENT OBTAINED BY SON OVER PHONE CALL. ONCOMING NURSE AWARE OF ORDERS AND PT CONDITION.
[2019-07-24 19:13] VITALS: BP 122/73; BP 131/72
[2019-07-24 19:25] VITALS: BP 122/73
--- NOTE | 2019-07-25 02:56 | NUR ---
TOLERATED UNIT OF PACKED RED BLOOD CELLS AND TURNS TO SIDE WITH ASSIST. INCONTINENT OF URINE AT SAME TIME THAT SHE DREAMED SHE WAS GETTING UP TO THE BATHROOM. UNDERSTANDS HER WEAKNESS THIS MORNING AND THAT SHE WAS SUDDENLY UNABLE TO KEEP HER HEAD UP BUT IS UNCLEAR WHAT DAY IT HAPPENED. ZOEY SCORE IS 14 AND SACRUM IS RED, PINK, AND APPEARS IF IT HAS BEEN SCRATCHED. BESIDES TURNING HER TO SIDES, I HAVE REQUESTED AND ATTACHED A LOW AIR LOSS PUMP TO THE BED.
[2019-07-25 04:50] LABS: ABSOLUTE NEUTROPHILS 5.5 thou/uL (1.4-8.2); BASOPHILS 1.2 % (0.0-2.0); EOSINOPHILS 1.3 % (0.0-3.0); HEMATOCRIT 28.6 % (37.0-47.0); LYMPHOCYTES 16.2 % (24.0-44.0); MCH 31.5 pg (26.0-34.0); MCHC 33.1 g/dL (28.0-37.0); MONOCYTES 8.6 % (1.0-8.0); PLATELET COUNT 376 thou/uL (150-400); POLYS 72.7 % (36.0-66.0); RBC 3.01 mil/uL (4.20-5.00); RDW 21.3 % (10.5-14.5); WBC 7.5 thou/uL (4.0-11.0)
[2019-07-25 04:51] LABS: HEMOGLOBIN 9.5 gm/dL (12.0-15.0); MCV 95.1 fL (80.0-100.0)
[2019-07-25 04:57] LABS: CALCIUM 9.1 mg/dL (8.5-10.1); CREATININE 0.8 mg/dL (0.6-1.0); POTASSIUM 3.3 mmol/L (3.5-5.1)
[2019-07-25 08:00] VITALS: BP 148/88
--- NOTE | 2019-07-25 08:29 | NUR ---
ASSUMED CARE OF PT AT 0715. PT IS A&OX3. IS ON 3L OF O2/NC. IS STABLE. REPORTS PAIN IN RIGHT HIP 10/28. THERAPUETUIC TECHNIQUES & ORAL PAIN MEDS ADMINISTERED. CARROLL INTACT ALONG WITH [place] DRSG C/D/I. ABDUCTOR PILLOW IN PLACE. PT IS REPOSITIONED Q2H WHILE IN BED. IS UP WITH 2 ASSIST, GB, STAND PIVOT TO CHAIR. FALL PRECAUTIONS & HOURLY ROUNDING CONTINUED THIS SHIFT. LABS & VITALS REVIEWED. PT IS CURRENTLY EATING BREAKFAST SITTING UP IN BED. BED ALARM ON. CALL LIGHT WITHIN REACH. WILL CONTINUE TO MONITOR.
[2019-07-25 20:18] VITALS: BP 119/68
--- NOTE | 2019-07-26 03:51 | NUR ---
PATIENT ALERT AND ORIENTED X4 WITH FORGETFULNESS. COOPERATIVE WITH CARE. DRESSING TO RIGHT HIP D/I. CARROLL TO INCISION INTACT WITH NO DRAINAGE NOTED. PATIENT HAS HAD INCONTINENCE OF TWO DARK STOOLS WITH URINE AT TIME OF NOTE. BARRIER CREAM APPLIED TO FRAGILE SKIN WITH REDNESS AND BRUISING. MEDICATED FOR PAIN X1 AT TIME OF NOTE. PATIENT RESTING QUIETLY. SCD'S AND JOSE M HOSE IN PLACE. WILL MONITOR.
--- NOTE | 2019-07-26 03:55 | NUR ---
LIDOCAINE PATCH TO RIGHT LEG REMOVED. ORIGINALLY CHARTED THAT PATCH WAS NOT FOUND ON PATIENT IN ASSESSMENT.
[2019-07-26 06:19] LABS: HEMATOCRIT 26.2 % (37.0-47.0); HEMOGLOBIN 8.9 gm/dL (12.0-15.0); MCH 32.3 pg (26.0-34.0); MCHC 33.9 g/dL (28.0-37.0); MCV 95.2 fL (80.0-100.0); RBC 2.75 mil/uL (4.20-5.00); RDW 21.6 % (10.5-14.5); WBC 6.6 thou/uL (4.0-11.0)
[2019-07-26 06:39] LABS: CALCIUM 8.4 mg/dL (8.5-10.1); CREATININE 0.7 mg/dL (0.6-1.0); POTASSIUM 4.7 mmol/L (3.5-5.1)
[2019-07-26 08:16] VITALS: BP 154/94
--- NOTE | 2019-07-26 10:11 | NUR ---
longterm packet delivered to dr ortega and SPINNING FRAME TENDER to complete prior to pt dc from acute rehab. family is trying to get lamin into [facility].
--- NOTE | 2019-07-26 11:07 | NUR ---
ASSUMED CARE OF PT AT 0715. PT IS A&OX3. FORGETFUL. NIGHT NURSE REPORTS PT IS ON 3L OF O2/NC. ASSISTED PT TO RECLINER. SAT 99% ON 1L. NOTIFIED LUCA AND SHE SAID WEAN OFF OXYGEN TODAY. VS STABLE. REPORTS PAIN IN RIGHT HIP 10/28. THERAPUETUIC TECHNIQUES & ORAL PAIN MEDS ADMINISTERED. CARROLL INTACT/ NO REDNESS, NO DRAINAGE NOTED. CLEANSED AND APPLIED OPTIFOAM WITH BORDERS. ABDUCTOR PILLOW IN PLACE PT IS REPOSITIONED Q2H WHILE IN BED. REDNESS ON BUTTOCK, ON LOW AIR LOSS MATRESS. IS UP WITH MAX ASSIST, GB, STAND PIVOT TO CHAIR. DR. LUO CAME TO SEE PT AND ORDERED XRAY ON ABD TO MONITOR CONSTIPATION. MORNING MEDS AND LAXATIVES GIVEN ORDERED. TOLERATED BETTER WITH APPLE SAUCE. LUCA AJUSTED PAIN MEDS. PT SEEMS TOLERATE WELL WITH THERAPIES SO FAR. FALL PRECAUTIONS & HOURLY ROUNDING CONTINUED THIS SHIFT. LABS & VITALS REVIEWED. HGB 8.9 TODAY. ENCOURAGED PT TO DRINK AND TO EAT MORE. ATE 25% BREAKFAST AND DRANK HER ENSURE. OFFERED SUPPORTIVE CARE. ASSISTED TO BSC. HAD LARGE WATERY BM THIS AM. C/O NAUSEA THIS AM. GAVE ZOFRAN BEFORE BREAKFAST. FALL PRECAUTION IN PLACE. BED ALARM ON. CALL LIGHT WITHIN REACH. WILL CONTINUE TO MONITOR.
[2019-07-26 20:38] VITALS: BP 137/80
--- NOTE | 2019-07-27 06:35 | NUR ---
PT ASSESSMENT COMPLETED AND VSS. MEDS GIVEN ORDERED AND WELL TOLERATED. FALL PRECAUTIONS IN PLACE. ASST WITH FREQUENT REPOSITION FOR COMFORT. INC OF LARGE LIQUID BROWN BM. INC OF URINE. DSGS ON R HIP DRY AND INTACT. BARRIER CREAM APPLIED TO COCCYX WOUND. SLEEPING WELL DURING THE NIGHT. SAT WNL WITH 02. CONTACTED SON FOR PT SO THAT THEY COULD TALK DURING THE EVENING. WILL CONTINUE TO MONITOR FREQUENTLY. SCDS ON.
[2019-07-27 07:50] VITALS: BP 126/74
--- NOTE | 2019-07-27 11:58 | NUR ---
ASSUMED CARE OF PT AT 0715. PT IS A&OX3. FORGETFUL. DR. LUO CAME TO SEE PT THIS AM AND ORDERED SUPPOSITIORY AND CITRA MAG. PT UNDERSTANDS THAT TREATMENT NEEDS TO HELP WITH HER CONSTIPATION. BISACODYL SUPPOSITORY GIVEN. PT STARTS WITH CITRA MAG BUT REFUSES TO TAKE IT SO SHE REFUSES. PT HAD LARGE LOOSE DARK GREEN STOOL ON BSC. HAS POOR APPETITE, DOESN'T HAVE FIX DENTURES AND REFUSES TO EAT DESPITE OF OFFERING ALTERNATIVE. PT C/O RIGHT LEG PAIN WITH MOVEMENT. PAIN MEDS ADMINISTERED SCHEDULED. CARROLL INTACT/ NO REDNESS, NO DRAINAGE NOTED. CLEANSED AND APPLIED OPTIFOAM WITH BORDERS. ABDUCTOR PILLOW IN PLACE PT IS REPOSITIONED Q2H WHILE IN BED. REDNESS ON BUTTOCK, ON LOW AIR LOSS MATRESS. IS UP WITH MAX ASSIST, GB, STAND PIVOT TO CHAIR. FALL PRECAUTIONS & HOURLY ROUNDING CONTINUED THIS SHIFT.
--- NOTE | 2019-07-27 12:56 | NUR ---
team meeting, recommendation: check with family to see if she has any home oxygen, fww or wheel chair. dc 17th, she will need assist with pills and bills.
[2019-07-27 19:14] VITALS: BP 106/73
--- NOTE | 2019-07-28 00:25 | NUR ---
PT ALERT AND ORIENTED X 4, FORGETFUL. RIGHT HIP DRESSINGS C/D/I. 02 ON AT 2L PER NC CONT. PT C/O PAIN IN HER LEGS. SCHEDULED TRAMADOL GIVEN AND PT SLEEPING UPON REASSESSMENT. TURNED Q2H. BED ALARM ON FOR SAFETY. PT APPEARS TO BE SLEEPING ON HOURLY ROUNDS.
[2019-07-28 07:51] VITALS: BP 137/80
[2019-07-28 08:00] VITALS: BP 137/80
--- NOTE | 2019-07-28 16:06 | NUR ---
ASSUMED CARE OF PT AT 0715. PT IS A&OX3. FORGETFUL. DR. LUO CAME TO SEE PT THIS AM. INFORMED DOCTOR THAT PT HAD SUPPOSITORY YESTERDAY AND HAS LOOSE STOOL BM 1X AND 1 WATER BM LAST EVENING BUT PT REFUSED TO TAKE CITRA MAG SHE SAID SHE COULDN'T TAKE IT. DOCTOR AWARES AND WANTS HER TO CONTINUE TO GIVE LAXATIVES ORDERED. PRN BISACODYL SUPPOSITORY THIS AM. PT HAD LARGE LOOSE DARK GREEN STOOL ON BSC. AND 1X WATERY STOOL. HAS POOR APPETITE, BUT DRANK SOME OF HER ENSURE. PT C/O RIGHT LEG PAIN WITH MOVEMENT. PAIN MEDS ADMINISTERED SCHEDULED. LIDOCAIN APPLIED. PT ALSO C/O SHOULDER AND NECK PAIN. NOTIFIED LUCA AND OBTAINED VOTAREN GEL. PT SAID IT HELPS. CARROLL INTACT/ NO REDNESS, NO DRAINAGE NOTED. OPTIFOAM DRESSINGS C/D/I. ABDUCTOR PILLOW IN PLACE PT IS REPOSITIONED Q2H WHILE IN BED. REDNESS ON BUTTOCK, ON LOW AIR LOSS MATRESS. IS UP WITH MAX ASSIST, GB, STAND PIVOT TO CHAIR. PT HAS ANXIETY AND SOMETIMES DESAT OR HAS TACHYCARDIA WHEN STANDS UP OR WALKING FOR FEAR OF FALLING. SHE DOES BETTER WITH ASSURANCE, SUPPORT AND ENCOURAGEMENT. FALL PRECAUTIONS & HOURLY ROUNDING CONTINUED THIS SHIFT. RESTING IN BED AT THIS MOMENT.
[2019-07-28 19:35] VITALS: BP 112/72
--- NOTE | 2019-07-29 01:24 | NUR ---
LOW AIR LOSS PUMP THERAPY CONTINUES, PATIENT TURNED Q 2 HOURS. INCONTINENT ONCE OF URINE AND ONCE OF STOOL. PATIENT WAS AWARE OF THE INCONTINENT STOOL AND APPRECIATED BEING QUICKLY CLEANED UP SOON IT OOZED OUT. APPRECIATES VOLTAREN GEL TO LOW BACK.
--- NOTE | 2019-07-29 02:47 | NUR ---
ICE TO LEFT FLANK FOR PATIENT COMFORT
[2019-07-29 07:02] LABS: ABSOLUTE NEUTROPHILS 3.4 thou/uL (1.4-8.2); EOSINOPHILS 3.6 % (0.0-3.0); LYMPHOCYTES 21.4 % (24.0-44.0); MCH 32.1 pg (26.0-34.0); MCHC 33.2 g/dL (28.0-37.0); MCV 96.7 fL (80.0-100.0); MONOCYTES 11.5 % (1.0-8.0); PLATELET COUNT 345 thou/uL (150-400); POLYS 62.5 % (36.0-66.0); RBC 2.79 mil/uL (4.20-5.00); WBC 5.5 thou/uL (4.0-11.0)
[2019-07-29 07:08] LABS: CALCIUM 8.9 mg/dL (8.5-10.1); CREATININE 0.8 mg/dL (0.6-1.0); MAGNESIUM 1.6 mg/dL (1.8-2.4); POTASSIUM 4.1 mmol/L (3.5-5.1)
[2019-07-29 08:00] VITALS: BP 135/87
--- NOTE | 2019-07-29 14:52 | NUR ---
FAXED CLINICAL UPDATE TO RI[facility] MCKEON RECEIVED CONFIRMATION AND LEFT MSG WITH GRETA IN ADM. DP TO FOLLOW.
--- NOTE | 2019-07-29 18:21 | NUR ---
ASSUMED CARE OF PT AT 0700. PT IS A&OX2-3, VITAL SIGNS ARE STABLE. PT REPORTS PAIN IN RIGHT LEG, MANAGED WITH PO MEDICATIONS AND LIDOCAINE PATCH PER ORDERS. DRESSING TO RIGHT HIP CHANGED PER ORDERS. CARROLL IN PLACE, SITE WELL APPROXIMATED, NO DRAINAGE NOTED. SPOKE TO SONCHANELLE, THIS MORNING ABOUT PT MOVING TO NEW ROOM, PROVIDED ROOM NUMBER AND NEW PHONE NUMBER TO ROOM PHONE. DR OLIVARES ORDERED NEW KUB, RESULTS COMMUNICATED WITH DR ESTRADA WHO RETURNED CALL, NO NEW ORDERS AT THIS TIME. FALL PRECAUTIONS IN PLACE, NURSING WILL CONTINUE TO MONITOR.
[2019-07-29 20:28] VITALS: BP 130/81
--- NOTE | 2019-07-30 00:05 | NUR ---
ASSUMED CARE OF PT AT 191407/29/19. PT WAS SLEEPING. EASILY AROUSABLE. WAS SOMEWHAT CONFUSED. IS ORIENTED X4. REPORTED PAIN IN RLE THAT IS BEING MANAGED WITH THEAPUETIC TECHNIQUES & ORAL MEDS. DRSG C/D/I. IS ON 2L OF O2/NC. IS UP WITH 1 ASSIST, GB, STAND PIVOT. FALL PRECAUTIONS & HOURLY ROUNDING CONTINUED THIS SHIFT. PT IS INCONT. TOILETING OFFERED WITH ROUNDING. LABS & VITALS REVIEWED. PT IS CURRENTLY IN BED SLEEPING CALL LIGHT WITHIN REACH. WILL CONTINUE TO MONITOR.
[2019-07-30 08:00] VITALS: BP 92/47
--- NOTE | 2019-07-30 12:22 | EKG ---
[facility] [place] [address] ELECTROCARDIOGRAM REPORT Name: EKTA GREEN Room #: 515-P ADM IN M.R.#: [id number] Admission: 07/22/19 Attend Phys: Donnie Kenyon MD Discharge: Date of : 35 Report #: [id number] THIS REPORT FOR: cc: Scott Thompson MD, Rene P. MD Lundgren,Jonathan Stewart MD [facility] ~ THIS REPORT FOR: //name// [facility] Test Date: 2019-07-24 Test Time: 11:28:39 Pat Name: EKTA GREEN Department: Room: 514 P Gender: F Animal Trainer: Christopher BLACKWOOD : 1935 Requested By: Manish Esteves Order Number: [id number] MD: Jonathan Baca Measurements Intervals Gordon Rate: 64 P: 84 PA: 148 QRS: 64 QRSD: 89 T: 43 QT: 381 QTc: 393 Interpretive Statements Sinus rhythm Occasional supraventricular complexes Nonspecific ST segment abnormality Compared to ECG 07/20/2019 12:17:16 No significant change was found Electronically Signed On 07-26-2019 9:25:23 CDT by Jonathan Baca [email or web address] <ELECTRONICALLY SIGNED> By: Jonathan Baca MD, [facility] 07/26/19 0925 1128 [id number] Jonathan Baca MD, [facility] /EPI
--- NOTE | 2019-07-30 12:34 | H ---
[facility] [place] [address] HISTORY AND PHYSICAL Name: EKTA GREEN Room #: 515-P ADM IN M.R.#: [id number] Admission: 07/22/19 Attend Phys: Donnie Kenyon MD Discharge: Date of : 35 Report #: [id number] THIS REPORT FOR: cc: Scott Thompson MD, Rene P. MD Smithson,Donnie Chau MD ~ CC: Donnie Thompson DATE OF SERVICE: 07/22/2019 HISTORY OF PRESENT ILLNESS: The patient is an 84-year-old white female who has a history of right hip pain after a fall while rehabbing her left hip at an outside facility. She had a prior left hip fracture and left hip intramedullary nailing on 07/07/2019, weightbearing as tolerated. She was evaluated by Orthopedics with her new right hip pain and was noted to have a new fracture and underwent IM nailing of the right hip on 07/20/2019 and also was allowed weightbearing as tolerated on the right lower extremity. She had acute blood loss anemia postop. She also had some hypotension. She has some pain complaints, reasonably controlled but exacerbated with mobility. She has been admitted now for acute in-hospital inpatient rehabilitation. As far as her past medical history, habits, social history, please see the history and physical documentation. Agree with the findings of the history and physical documentation. ALLERGIES: CODEINE AND SHELLFISH. MEDICATIONS: Please see the MAR. REVIEW OF SYSTEMS: As noted. No chest pain, no shortness of breath, abdominal discomfort. She noted she had some diarrhea earlier. She does have some discomfort of both lower extremities with increased movement. PHYSICAL EXAMINATION: GENERAL: The patient is an 84-year-old white female, in no obvious distress. VITAL SIGNS: Last recorded temperature 97.8, pulse is 82, respirations 18, blood pressure 94/55. The patient is alert. She is pleasant. HEENT: Appeared to be benign. NEUROLOGIC: Cranial nerves are grossly intact. Facies are symmetric. She is of slender build. She has functional range of motion of the upper extremities, strength is a grade 4-/5. DTRs are trace to 1. CHEST: Sounded clear to auscultation. CARDIOVASCULAR: Regular rate and rhythm. ABDOMEN: Bowel sounds positive, nontender. GENITOURINARY AND RECTAL: Deferred. She does have adult [employer]ends diapers in [address] [address] HISTORY AND PHYSICAL Name: EKTA GREEN Room #: 515-P ADM IN [facility].#: [id number] Admission: 07/22/19 Attend Phys: Donnie Kenyon MD Discharge: Date of : 35 Report #: [id number] EXTREMITIES: Her left hip incisions have healed and the bridgett have been removed. She does have right hip incisions, 3 incisions; proximal, middle and distal over the right lateral thigh of which bridgett are in place. There is no drainage. There is no focal calf swelling. She is able to dorsiflex both lower extremities. Strength is probably at least a grade 3+/5. She has been working in therapies with max assist for basic transfers, has taken a couple of steps mod assist with assistance in therapy as part of a transfer. ASSESSMENT: An 84-year-old white female with the following problem list: 1. Right hip fracture, status post intramedullary nailing, 07/20/2019, weightbearing as tolerated. 2. Acute blood loss anemia, postop. 3. Recent left hip fracture, status post intramedullary nailing, 07/07/2019, weightbearing as tolerated. 4. Falls. 5. Chronic obstructive pulmonary disease. 6. Hypertension, now with hypotension. 7. Protein-calorie malnutrition. 8. Depression. PLAN: The patient is admitted for acute in-hospital inpatient rehabilitation. Please see the history and physical documentation as noted and agree with the findings and the assessment and plan. From a post-admission physician evaluation perspective, there are no relevant changes since the preadmission screening. Please see the above review of prior and current medical and functional conditions and comorbidities. Please see the patient's previous and current functional status. As far as risk of complications, the patient has multiple medical comorbidities as noted above. Initial plan of care involves the interdisciplinary acute inpatient rehabilitation program. Measurable functional goals would be for the patient to improve her strength, mobility, ADLs as well as overall cognition and safety issues. So she can hopefully return back to the home setting to her apartment. Prognosis is reasonably good with estimated length of stay probably at least 2-3 weeks pending progress. Potential barriers would include her multiple medical comorbidities and decreased functional status. The patient meets diagnostic criteria for an acute in-hospital inpatient rehabilitation stay. She meets the medical necessity criteria and we will have the talent consultant physicians continue to follow. She does have the tolerance for therapies and has appropriate discharge goals back to the home setting. ADDENDUM [facility] [address] [place] [address] HISTORY AND PHYSICAL Name: EKTA GREEN Room #: 515-P ADM IN M.R.#: [id number] Admission: 07/22/19 Attend Phys: Donnie Kenyon MD Discharge: Date of : 35 Report #: [id number] Discussion with nurse practitioner, Tammie Carney, regarding DVT prophylaxis for this patient. She is now on Xarelto as noted. <ELECTRONICALLY SIGNED> By: Donnie Kenyon MD 07/30/19 1234 [id number] 1525 Donnie Kenyon MD /[facility]
--- NOTE | 2019-07-30 20:00 | NUR ---
ASSUMED CARE OF PT AT 0700. PT IS A&OX2-3, TACHYCARDIA EPISODES NOTED THROUGHOUT SHIFT. PT REPORTED NAUSEA IN AM, MANAGED WITH BREATHING EXERCISES, AND CLEAR LIQUIDS. PAIN MANAGED WITH PO MEDICAITONS AND LIDOCAINE PATCH PER ORDERS. PT AGITATED AND CONFUSED THIS AFTERNOON. ORDERS OBTAINED FOR UA, UNABLE TO OBTAIN THIS SHIFT, ONCOMING SHIFT AWARE OF ORDERS. FALL PRECAUTIONS IN PLACE AND NURSING WILL CONTINUE TO MONITOR.
[2019-07-30 21:40] VITALS: BP 132/79
--- NOTE | 2019-07-31 03:53 | NUR ---
assumed care at approx 1900 evening 07/29. pt lying in bed with head of bed elevated at change of shift. pt appropriate and cooperative this shift. pt placed on 02 2l per n/c as sat 86% on room air. pt took meds with water tolerating well. pt voided approx 300 cc orange colored urine in bedpan and UA sent to lab. pt given pain med and sleeping off and on. call light in reach. bed alarm on. will continue to monitor.
[2019-07-31 05:01] LABS: URINE BILIRUBIN NEGATIVE (Negative); URINE BLOOD NEGATIVE (Negative); URINE CLARITY SL CLOUDY; URINE COLOR YELLOW; URINE GLUCOSE-RANDOM* NEGATIVE (Negative); URINE KETONES NEGATIVE (Negative); URINE LEUKOCYTES-REFLEX TRACE (Negative); URINE NITRITE-REFLEX NEGATIVE (Negative); URINE PROTEIN (DIPSTICK) TRACE (Negative); URINE UROBILINOGEN 0.2 E.U./dl (0.2-1.0)
[2019-07-31 08:00] VITALS: BP 109/74
--- NOTE | 2019-07-31 18:42 | NUR ---
ASSUMED CARE OF PT 0700. PT IS A&OX4 AND VITAL SIGNS ARE STABLE. PT REPORTS PAIN IN RIGHT HIP, MANAGED WITH PO MEDICATIONS AND LIDOCAINE PATCH, PARTICIPATED IN SCHEDULED THERAPIES. DRESSING TO RIGHT HIP CHANGED PER ORDERS. SON CALLED BY NURSE WITH UPDATE ON PATIENT THIS AFTERNOON. FALL PRECAUTIONS IN PLACE AND NURSING WILL CONTINUE TO MONITOR.
[2019-07-31 19:36] VITALS: BP 121/66
--- NOTE | 2019-08-01 00:41 | NUR ---
PT ALERT AND ORIENTED X 2. RIGHT HIP DRESSINGS C/D/I. PT C/O PAIN IN RIGHT HIP. TRAMADOL GIVEN ORDERED. BED ALARM ON FOR SAFETY. PT APPEARS TO BE SLEEPING ON HOURLY ROUNDS.
[2019-08-01 08:20] VITALS: BP 138/82
--- NOTE | 2019-08-01 10:43 | NUR ---
ASSUMED CARE AT 0700. PATIENT IS ALERT AND ORIENTED X2, WITH CONFUSION. PATIENT STERN, SLIVER CUTTER ARE EQUAL. LUNGS ARE CLEAR AND DEMINISHED. ABD IS SOFT WITH BS X4. PATIENT IS INCONTINENT OF URINE. UP IN BED FOR BREAKFAST. FALL AND SAFETY PROTOCOLS IN PLACE. C/O RIGHT HIP PAIN. MEDICATED WITH SCED PAIN MED AND LIDOCAINE PATCH TO HER RIGHT HIP. DRESSING CHANGED TO RIGHT HIP. CARROLL ARE DRY AND INTACT. [place] BANDAID APPLIED. CONTINUES TO PROGRESS SLOWLY TOWARDS D/C GOALS. WILL CONTINUE TO MONITER.
[2019-08-01 19:31] VITALS: BP 106/67
--- NOTE | 2019-08-02 01:58 | NUR ---
assumed care at approx 1900 evening 07/31. pt lying in bed at change of shift dozing off and on. pt awoke to take hs meds with water tolerating well. assisted pt with turning and repositioning. pt appears to be sleeping soundly with hourly rounding checks. bed alarm on and call light in reach. will continue to monitor.
[2019-08-02 08:00] VITALS: BP 111/70
--- NOTE | 2019-08-02 12:55 | NUR ---
Nutrition: Please obtain new weight, no weight taken since 07/21.
--- NOTE | 2019-08-02 14:24 | NUR ---
ASSUMED CARES AT 0700. PT AWAKE, ORIENTED TO PERSON AND PLACE ONLY. SOME CONFUSION NOTED THIS AM, FORGETFUL. C/O PAIN IN RIGHT HIP, PAIN MEDICATION ADMINISTERED PER ORDER. RIGHT HIP INCISION REMAINS DRY AND INTACT, CARROLL IN PLACE, PT DISCONTINUED DRESSING. IV ON LEFT ARM REMAINS INTACT AND PATENT. PT REMAINS ON 1L O2 WITH SATS >93%. UP WITH 1 MOD ASSIST, GB AND WALKER AND TOLERATED WELL. Q1H VISUAL CHECKS. CALL LIGHT WITHIN REACH. FALL PRECAUTIONS IN PLACE
[2019-08-02 19:45] VITALS: BP 119/67
--- NOTE | 2019-08-03 00:54 | NUR ---
assumed care at approx 1900 evening 08/01. pt lying in bed with head of bed elevated. pt sleeping off and on at change of shift. pt assisted with bedpan at hs however no urine or bm. pt took hs meds with water tolerating well. pt appears to be sleeping soundly with hourly rounding. bed alarm on and call light in reach. will continue to monitor.
--- NOTE | 2019-08-03 13:59 | NUR ---
team meeting, recommendation: she is still requiring assistance with rehab and oxygen. needing to go skilled before returning to [place]. will discuss with pt and daughter rashid. referral to be sent to [facility] on
--- NOTE | 2019-08-03 15:46 | NUR ---
FAXED REFERRAL TO [facility] FOR SKILLED STAY SPOKE WITH SHAHEED IN ADM SHE RECEIVED REFERRAL AND WILL ACCEPT AT DC. ANTICIPATE DC 08/05
--- NOTE | 2019-08-03 16:27 | NUR ---
ASSUMED CARES AT 0700. PT AWAKE, ORIENTED TO PERSON ONLY. FORGETFUL AND CONFUSED. C/O RIGHT HIP PAIN, TRAMADOL AND ACETAMINOPHEN ADMINISTERED. LS CLEAR, O2 SATS STABLE. HS STABLE, RLE EDEMA, JOSE M HOSE IN PLACE WHEN AWAKE AND SCD ON AT NOC. PT EATING VERY POORLY, 5-10% PER MEAL AND ENSURE 50%. ABDOMEN SOFT AND FLAT WITH ACTIVE BS, LAST BM 07/31/19. UP WITH 1 MOD ASSIST, GB AND WALKER. Q1H VISUAL CHECKS. CALL LIGHT WITHIN REACH. FALL PRECAUTIONS IN PLACE
[2019-08-03 19:10] VITALS: BP 115/70
--- NOTE | 2019-08-04 01:22 | NUR ---
PT ALERT AND ORIENTED X 4, CONFUSED AT TIMES. 02 ON AT 1L PER NC. RIGHT HIP INCISIONS C/D/I WITH CARROLL. PT C/O PAIN IN RIGHT HIP. SCHEDULED TRAMADOL GIVEN AT HS AND PT SLEEPING UPON REASSESSMENT. BED ALARM ON FOR SAFETY. PT APPEARS TO BE SLEEPING ON HOURLY ROUNDS.
[2019-08-04 05:59] LABS: ABSOLUTE NEUTROPHILS 2.8 thou/uL (1.4-8.2); BASOPHILS 1.2 % (0.0-2.0); EOSINOPHILS 5.7 % (0.0-3.0); HEMATOCRIT 30.1 % (37.0-47.0); HEMOGLOBIN 9.9 gm/dL (12.0-15.0); LYMPHOCYTES 28.7 % (24.0-44.0); MCH 32.8 pg (26.0-34.0); MCV 99.4 fL (80.0-100.0); MONOCYTES 11.7 % (1.0-8.0); PLATELET COUNT 425 thou/uL (150-400); POLYS 52.7 % (36.0-66.0); RBC 3.03 mil/uL (4.20-5.00); RDW 21.4 % (10.5-14.5); WBC 5.3 thou/uL (4.0-11.0)
[2019-08-04 06:15] LABS: CALCIUM 8.9 mg/dL (8.5-10.1); CREATININE 0.9 mg/dL (0.6-1.0); POTASSIUM 4.5 mmol/L (3.5-5.1)
[2019-08-04 07:50] VITALS: BP 153/78
--- NOTE | 2019-08-04 18:28 | NUR ---
ASSUMED CARE OF PT AT 0700. PT IS A&OX4 AND VITAL SIGNS ARE STABLE. PT REPORTS PAIN IN RLE, MANAGED WITH PO MEDICATIONS AND LIDOCAINE PATCH, PARTICIPATED IN SCHEDULED THERAPIES. ORDERS TO REMOVE CARROLL TODAY PER ORTHOPEDIC SURGEON, 14 CARROLL REMOVED FROM RLE SURGICAL INCISIONS. SURGICAL SITE IS WELL APPROXIMATED, NO DRAINAGE, REDNESS, OR EDEMA, STERI-STRIPS IN PLACE. FALL PRECAUTIONS IN PLACE AND NURSING WILL CONTINUE TO MONITOR.
[2019-08-04 19:45] VITALS: BP 120/74
--- NOTE | 2019-08-04 20:50 | NUR ---
LEFT ARM SALINE LOCK DC'd
--- NOTE | 2019-08-05 03:32 | NUR ---
TURNED TO SIDE WITH HELP AND ENCOURAGEMENT, APPRECIATES PILLOW AT BACK AND UNDER CALVES. LOW AIR LOSS PUMP THERAPY CONTINUES. STATES PAIN UNDER CONTROL. ACCEPTS NEED FOR O2 AT NIGHT WHILE SLEEPING SINCE SHE IS 89-90% AT REST WHEN AWAKE. CORRECTLY STATES SHE WILL LEAVE US IN 2 DAYS FOR ANOTHER FACILITY WHERE SHE WILL STAY UNTIL SHE IS STRONGER AND CAN MOVE TO AN ASSITED LIVING SPACE.
[2019-08-05 08:00] VITALS: BP 134/87
--- NOTE | 2019-08-05 10:43 | NUR ---
CHART COPY REQUESTED FOR DC TO [facility] TOMORROW AM.
--- NOTE | 2019-08-05 20:18 | NUR ---
ASSUMED CARE OF PT AT 0700. PT IS A&OX3-4 AND VITAL SIGNS ARE STABLE. PT REPORTS HIP PAIN, MANAGED WITH PO MEDICAITONS AND LIDOCAINE PATCH. PARTICIPATED IN SCHEDULED THERAPIES. PT CONFUSED LATE IN AFTERNOON AND INCREASIGLY IMPULSIVE MAKING ATTEMPTS TO GET UP WITHOUT ASSISTANCE. PT ENCOURAGED TO SIT IN CHAIR AND WATCH TV WHICH HELPED WITH IMPULSIVITY. FALL PRECAUTIONS IN PLACE AND NURSING WILL CONTINUE TO MONITOR.
[2019-08-05 21:00] VITALS: BP 135/82
--- NOTE | 2019-08-06 03:21 | NUR ---
UP TO TOILET WITH GAIT BELT, WALKER, AND MOD ASSIST FOR SMALL VOID AND MODERATE BLACK FORMED STOOL. WEARS BRIEF FOR SMALL AMOUNT URINE AND SMEAR STOOL. BVI CHECK PRIOR TO VOID SHOWS 300 CC. APPRECIATES TURNS TO SIDE, Z-GUARD TO SMALL OPEN AREA LEFT BUTTOCK AND PINK SACRUM. LOW AIR LOSS MATTRESS THERAPY CONTINUES.
[2019-08-06 07:30] VITALS: BP 149/85
[2019-08-06] MEDS ORDERED: TRAMADOL 50 MG50 MG PO (08:56)
[2019-08-06] MEDS ORDERED: IPRAT-ALBUT 0.5-3 ML INH (08:59)
[2019-08-06] MEDS ORDERED: TYLENOL 8 HOUR650 MG PO (08:59)
[2019-08-06] MEDS ORDERED: METAMUCIL FIBE3.4 GM PO (08:59)
[2019-08-06] MEDS ORDERED: TYLENOL EXTRA500 MG PO (08:59)
[2019-08-06] MEDS ORDERED: PULMICORT0.5 MG/22 INH (08:59)
[2019-08-06] MEDS ORDERED: LIDOPATCH1 EACH TRANSDERM (08:59)
[2019-08-06] MEDS ORDERED: XARELTO10 MG PO (08:59)
[2019-08-06] MEDS ORDERED: REMERON 30 MG T30 M1 PO (08:59)
--- NOTE | 2019-08-06 12:49 | NUR ---
ASSUMED CARE OF PT AT 0700. PT IS A&OX4 WITH SOME CONFUSION, VITAL SIGNS ARE STABLE. PLANS FOR DISCHARGE PLANS FOR THIS SHIFT. NURSE FROM FACILITY CALLED AT 1100 FOR REPORET. PT SIGNED DISCHARGE PAPERWORK, DISCAHRGE INSTRUCTIONS REVIEWED WITH PT, DENIES QUESTIONS. SCRIPT AND CHART COPY SENT WITH PT AT DISCHARGE. PT ASSISTED TO TRANSPORTATION AT MAIN ENTRANCE BY FORKLIFT OPERATOR. BELONGINGS REMOVED FROM ROOM AT TIME OF DISCHARGE.
== END 2019-08-06 11:15 | DRG 536 ==
PROVIDERS: Hospitalist; Nurse Practitioner; Nurse Practitioner Family; ADMIT Physical Medicine & Rehabilitation
PROC: 30233N1 Transfusion of Nonautologous Red Blood Cells into Peripheral Vein, Percutaneous Approach (ICD-10-PCS; principal; 2019-07-24)
DX: S72.141A Displaced intertrochanteric fracture of right femur, initial encounter for closed fracture (principal); D62 Acute posthemorrhagic anemia; E46 Unspecified protein-calorie malnutrition; Z68.1 Body mass index [BMI] 19.9 or less, adult; R26.9 Unspecified abnormalities of gait and mobility; N81.6 Rectocele; R00.0 Tachycardia, unspecified; J44.9 Chronic obstructive pulmonary disease, unspecified; I10 Essential (primary) hypertension; M13.0 Polyarthritis, unspecified; F32.9 Major depressive disorder, single episode, unspecified; I95.9 Hypotension, unspecified; K62.3 Rectal prolapse; F01.50 Vascular dementia, unspecified severity, without behavioral disturbance, psychotic disturbance, mood disturbance, and anxiety; K59.09 Other constipation; K21.9 Gastro-esophageal reflux disease without esophagitis; W18.39XA Other fall on same level, initial encounter; Z91.81 History of falling; Z87.891 Personal history of nicotine dependence; Z88.6 Allergy status to analgesic agent; Z91.013 Allergy to seafood; Z89.421 Acquired absence of other right toe(s); Y93.89 Activity, other specified; Y92.89 Other specified places as the place of occurrence of the external cause; Y99.8 Other external cause status
CPT/HCPCS: 10112

== ENCOUNTER 2019-08-09 01:26 | Emergency (ER) | payer OTHER ==
[~2019-08-09] VITALS: Ht 167.6 cm; Wt 36.7 kg
--- NOTE | ~2019-08-09 | EMS ---
[address] [address] EMS Patient Care Report Name: EKTA GREEN Room #: REG JOHN Ull[facility]#: [id number] Admission: 08/09/19 Attend Phys: Discharge: Date of : 35 Report #: [id number] THIS REPORT FOR: //name// Report Transmitted: 08/09/2019 00:52 EMS Care Summary [facility] MED-ACT Incident [id number] @ 08/09/2019 00:50 Incident Location [address] [place] [address] Patient EKTA GREEN Female, 84 Years 1935 Patient Address [address] [place] [address] Patient History Hypertension (HTN),Arthritis,Depression,Osteoarthritis,Anemia, Patient Allergies Codeine,Shellfish allergy, Patient Medications Losartan, Tramadol, Famotidine, Hydrocodone, Chief Complaint Head injury. Disposition Transported No Lights/[place] Reason Falls Transported To [facility] Narrative History: Pt reports she had just gotten up from her bed and was standing next to her wheel chair when she became dizzy and fell striking her head on the wall [address] [address] EMS Patient Care Report Name: EKTA GREEN Room #: REG JOHN [facility]#: [id number] Admission: 08/09/19 Attend Phys: Discharge: Date of : 35 Report #: [id number] to the floor. Pt reports she has been dizzy for the last week. Pt denies any new injuries other than a small laceration above her L eye. Staff reports they helped the pt up to her wheel chair, and brought her out to the front of the facility. Pt denies any loss of consciousness. Pt denies any neck or back pain. Pt notes no other complaints at this time. Assessment: Pt was found seated in a wheel chair at the front of the facility. Pt ABCs intact. Pt A&Ox4. Pt has a small 1 inch laceration above her L eye. No bleeding noted. No swelling noted. See assessment tab for detailed physical exam findings and pertinent negatives. Treatment: Primary. VS. HPI. PMH. Physical exam. Pt ambulatory with assistance to EMS stretcher and secured in semi-tiwari's position. Pt moved via stretcher to ambulance. Pt placed on orchestra leader. Biocom called to [facility] to confirm they would accept the pt with a head injury and blood thinner rx. Transport: En route, continue with on-going assessment. Pt VS and condition remained unchanged throughout continuous reassessment. No changes noted. Pt was brought via stretcher to ED room 8. Pt moved via sheet drag to hospital bed. Report to attending RN. Patient signed. Care transferred. Initial Vitals @01:02P: 64,SpO2: 79,[place] Suspected: false @01:03P: 106,R: 16,BP: 145/74,Pain: 2/10,GCS: 15,SpO2: 97,Revised Trauma: 12, @01:16P: 92,R: 16,BP: 147/93,Pain: 2/10,GCS: 15,Temp: 99F,SpO2: 97,Revised Trauma: 12, Assessments @00:59MENTAL:Time Oriented,Person Oriented,Event Oriented,Place Oriented,SKIN:HEENT:LUNG SOUNDS:ABDOMEN:PELVIS//GI:EXTREMITIES:Left Arm: No Abnormalities,Right Arm: No Abnormalities,PULSE:NEURO: Impression Injury of Head Timeline 00:47,Call Received 00:47,Psap Call 00:50,Dispatched 00:52,En Route 00:55,On Scene 00:57,At Patient 01:02,BP: / M,PULSE: 64,RR: R,SPO2: 79 Ox,ETCO2: ,BG: ,PAIN: ,GCS: , 01:03,BP: 145/74 M,PULSE: 106,RR: 16 R,SPO2: 97 Ox,ETCO2: ,BG: ,PAIN: 2,GCS: [facility] [address] [place] [address] EMS Patient Care Report Name: EKTA GREEN Room #: REG [facility].#: [id number] Admission: 08/09/19 Attend Phys: Discharge: Date of : 35 Report #: [id number] 15, 01:08,Depart Scene 01:16,BP: 147/93 M,PULSE: 92,RR: 16 R,SPO2: 97 Ox,ETCO2: ,BG: ,PAIN: 2,GCS: 15, 01:19,At Destination 01:39,Call Closed Disclaimer v1.1 Copyright 2020 [employer] This EMS Care Summary contains data elements from the applicable legal record (which may be displayed differently). It is designed to provide pertinent information for the following purposes: continuity of care, clinical quality, and state data reporting. The complete legal record is available to ED staff and administrators of the receiving hospital in ES's Patient Tracker. All data is provided "as is."
[~2019-08-09 01:26] MED LIST changes: +IPRAT-ALBUT 0.5-3 ML INH; +LIDOPATCH1 EACH TRANSDERM; +METAMUCIL FIBE3.4 GM PO; +PULMICORT0.5 MG/22 INH; +REMERON 30 MG T30 M1 PO; +TRAMADOL 50 MG50 MG PO; +TYLENOL EXTRA500 MG PO
[2019-08-09 03:21] VITALS: BP 132/91
== END 2019-08-09 04:16 ==
LOC: ER 01:26
DX: S01.111A Laceration without foreign body of right eyelid and periocular area, initial encounter (principal); S60.221A Contusion of right hand, initial encounter; I10 Essential (primary) hypertension; K21.9 Gastro-esophageal reflux disease without esophagitis; M06.9 Rheumatoid arthritis, unspecified; F32.9 Major depressive disorder, single episode, unspecified; Z91.013 Allergy to seafood; Z88.6 Allergy status to analgesic agent; W18.39XA Other fall on same level, initial encounter; Y93.89 Activity, other specified; Y92.128 Other place in nursing home as the place of occurrence of the external cause; Y99.8 Other external cause status